=== PATIENT | male | born 1945 | race Caucasian/White ===

== ENCOUNTER 2017-03-21 12:51 | Inpatient (IN) | payer OTHER, MEDICARE ==
[~2017-03-21] VITALS: Ht 177.8 cm; Wt 96.5 kg
[~2017-03-21 12:51] MED LIST: CELE40TA PO; CLON.5 PO; FLUD.1 PO; ZYPR10TA PO
[2017-03-21 12:53] VITALS: BP 130/77; PULSE 76; RESP 18; TEMP 98.9; O2SAT 97
[2017-03-21] MEDS ORDERED: CITA10SO5 PO (14:16)
[2017-03-21] MEDS ORDERED: PILO5TAB3 PO (14:16)
[2017-03-21] MEDS ORDERED: NAPR500 PO (14:16)
[2017-03-21] MEDS ORDERED: CLON0.5T PO (14:16)
[2017-03-21] MEDS ORDERED: SIMV80TA PO (14:16)
[2017-03-21] MEDS ORDERED: ANTI2CAP PO (14:16)
[2017-03-21] MEDS ORDERED: PHEN-537 PO (14:16)
--- NOTE | 2017-03-21 14:36 | RADRPT ---
EXAM DATE/TIME: 03/21/2017 14:15 [place] COMPARISON: CT BRAIN W/O CONTRAST, August 26, 2009, 11:18. CT BRAIN W/O CONTRAST, September 22, 2009, 18:37. INDICATIONS : Altered mental status RADIATION DOSE: 33.08 CTDIvol (mGy) MEDICAL HISTORY : None SURGICAL HISTORY : None. ENCOUNTER: Initial ACUITY: 1 day PAIN SCALE: 0/10 LOCATION: cranial TECHNIQUE: Multiple contiguous axial images were obtained of the head. Using automated exposure control and adj ustment of the mA and/or kV according to patient size, radiation dose was kept as low as reasonably a chievable to obtain optimal diagnostic quality images. DICOM format image data is available electro nically for review and comparison. FINDINGS: CEREBRUM: There is mild generalized atrophy. Ventricles are normal. 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 No midline shift, mass lesion, hemorrhage or acute in farction. No extra-axial fluid collections are seen. POSTERIOR FOSSA: The cerebellum and brainstem demonstrate no acute finding. The 4th ventricle is midline. The cerebe llopontine angle is unremarkable. EXTRACRANIAL: Visualized sinuses are clear. SKULL: The calvaria is intact. No evidence of skull fracture. CONCLUSION: Stable noncontrast head CT. No acute finding is identified. 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 Gerald Younger MD on March 21, 2017 at 14:25 Board Certified Radiologist. This report was verified electronically.
--- NOTE | 2017-03-21 15:01 | PD ---
HPI Chief Complaint: Medical Clearance Time Seen by Provider: 13:32 Travel History International Travel<30 days: No Contact w/Intl Traveler<30days: No Traveled to known affect area: No History of Present Illness HPI 71-year-old male presents to emergency department, accompanied by 2 friends, with complaint of confusion for the past few months with recent worsening. Denies injury or fall. He lives with his at home. Patient is alert and oriented to self, place, Pres. Not oriented to time. Denies headache, eye headedness, dizziness. Denies disorientation, change in mentation, slurred speech, focal deficits or weakness. Denies chest pain, shortness of breath, abdominal pain, dysuria, change in stool. Denies recent illness. Denies fever , vomiting. I significant past medical history. Denies allergies. Primary care provider is Dr. Clement. Says he has a history of bipolar disorder and has not taken his medications in an unknown amount of time. He does not know what medication he takes. He has no other medical complaints. No known allergies. No other modifying factors or associated signs and symptoms. PFSH Past Medical History Bipolar Disorder: Yes Depression: Yes Diminished Hearing: No Psychiatric: Yes Tetanus Vaccination: Unknown Past Surgical History Other Surgery: Yes ("I had a circumcision years ago") Social History Alcohol Use: No Tobacco Use: No Substance Use: No Allergies-Medications (Allergen,Severity, Reaction): Coded Allergies: No Known Allergies (Verified Adverse Reaction, Unknown, 03/21/17) Reported Meds & Prescriptions Reported Meds & Active Scripts Active Zyprexa (Olanzapine) 10 Mg Tab 10 Mg PO HS Florinef (Fludrocortisone Acetate) 0.1 Mg Tab 0.1 Mg PO DAILY Klonopin (Clonazepam) 0.5 Mg Tab 0.5 Mg PO BID 60 Days Celexa (Citalopram Hydrobromide) 40 Mg Tab 40 Mg PO DAILY Reported Simvastatin 80 Mg Tab 80 Mg PO DAILY Clonazepam 0.5 Mg Tab 0.5 Mg PO HS Anti-Diarrheal (Loperamide HCl) 2 Mg Cap 2 Mg PO DIRECTED One capsule after each loose stool. Not to exceed 8 capsules per day. Pilocarpine 5 Mg Tab 5 Mg PO Q12HR PRN Citalopram HBr (Citalopram Hydrobromide) 20 Mg/10 Ml Solution 20 Mg PO DAILY Phenazopyridine (Phenazopyridine HCl) 200 Mg Tab 200 Mg PO Q8H PRN Naprosyn (Naproxen) 500 Mg Tab 500 Mg PO BID Review of Systems Except as stated in HPI: all other systems reviewed are Neg Physical Exam Narrative GENERAL: Well-nourished, well-developed elderly, male patient, in no acute distress SKIN: Warm and dry. HEAD: Atraumatic. Normocephalic. No facial droop noted. Tongue midline. EYES: Pupils equal and round at 3 mm with brisk reaction. No scleral icterus. No injection or drainage. PERRLA. EOMI. ENT: Mucosa pink and moist. Airway patent. NECK: Trachea midline. No lymphadenopathy. CARDIOVASCULAR: Regular rate and rhythm. No murmur appreciated. RESPIRATORY: No accessory muscle use. Clear to auscultation. Breath sounds equal bilaterally. GASTROINTESTINAL: Abdomen soft, non-tender, nondistended. Hepatic and splenic margins not palpable. Bowel sounds are active 4 quadrants. MUSCULOSKELETAL: No obvious deformities. No clubbing. No cyanosis. No edema. NEUROLOGICAL: Awake and alert. Oriented 3. No obvious cranial nerve deficits. Motor grossly within normal limits. Normal speech. No ataxia. No mid -line drift. Moves all extremities. 5/5 strength to all extremities. PSYCHIATRIC: Appropriate mood and affect; insight and judgment normal. Data Data Last Documented VS Vital Signs Date Time Temp Pulse Resp B/P (MAP) Pulse Ox O2 Delivery O2 Flow Rate FiO2 03/21/17 17:31 84 20 116/65 (82) 98 03/21/17 12:53 98.9 Orders Orders Basic Metabolic Panel (Bmp) (03/21/17 13:53) Complete Blood Count With Diff (03/21/17 13:53) Urinalysis - C+S If Indicated (03/21/17 13:53) Ct Brain W/O Iv Contrast(Rout) (03/21/17 ) Ed Discharge Order (03/21/17 16:49) Labs Laboratory Tests Test 03/21/17 14:30 03/21/17 15:40 White Blood Count 7.2 TH/MM3 Red Blood Count 4.31 MIL/MM3 Hemoglobin 13.3 GM/DL Hematocrit 40.2 % Mean Corpuscular Volume 93.2 FL Mean Corpuscular Hemoglobin 30.7 PG Mean Corpuscular Hemoglobin Concent 33.0 % Red Cell Distribution Width 13.0 % Platelet Count 213 TH/MM3 Mean Platelet Volume 7.8 FL Neutrophils (%) (Auto) 59.6 % Lymphocytes (%) (Auto) 29.0 % Monocytes (%) (Auto) 8.3 % Eosinophils (%) (Auto) 2.3 % Basophils (%) (Auto) 0.8 % Neutrophils # (Auto) 4.3 TH/MM3 Lymphocytes # (Auto) 2.1 TH/MM3 Monocytes # (Auto) 0.6 TH/MM3 Eosinophils # (Auto) 0.2 TH/MM3 Basophils # (Auto) 0.1 TH/MM3 CBC Comment DIFF FINAL Differential Comment Blood Urea Nitrogen 18 MG/DL Creatinine 0.95 MG/DL Random Glucose 90 MG/DL Calcium Level 8.4 MG/DL Sodium Level 141 MEQ/L Potassium Level 3.9 MEQ/L Chloride Level 108 MEQ/L Carbon Dioxide Level 27.5 MEQ/L Anion Gap 6 MEQ/L Estimat Glomerular Filtration Rate 78 ML/MIN Urine Color YELLOW Urine Turbidity CLEAR Urine pH 5.5 Urine Specific [place] 1.026 Urine Protein NEG mg/dL Urine Glucose (UA) NEG mg/dL Urine Ketones NEG mg/dL Urine Occult Blood NEG Urine Nitrite NEG Urine Bilirubin NEG Urine Urobilinogen LESS THAN 2.0 MG/DL Urine Leukocyte Esterase NEG Urine RBC LESS THAN 1 /hpf Urine WBC 2 /hpf Urine Squamous Epithelial Cells <1 /hpf Urine Mucus FEW /lpf Microscopic Urinalysis Comment CATH-CULT NOT IND MDM Medical Decision Making Medical Screen Exam Complete: Yes Emergency Medical Condition: Yes Medical Record Reviewed: Yes Differential Diagnosis Altered mental status, dementia, Alzheimer disease, confusion, UTI, brain mass Narrative Course 71-year-old male with effusion for the past few months with recent worsening. Neuro exam is unremarkable. CBC, BMP, CT head, urinalysis ordered. 1520: CT head concludes: Head CT 03/21/17 0000 Signed Impressions: Service Date/Time: Tuesday, March 21, 2017 14:15 - CONCLUSION: Stable noncontrast head CT. No acute finding is identified. 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 Gerald Younger MD CBC unremarkable. BMP unremarkable. 1640: Urinalysis without signs of infection. Dr Roberson evaluated the patient and agrees with discharge. He lives at home with his . Discussed home health care and other options. Instructed patient to follow up with primary care provider. Patient verbalizes understanding and agreement with treatment plan. Patient is medically cleared and stable for discharge. Discussed reasons to return to the emergency department. Patient agrees with treatment plan. The patients vital signs are stable and the patient is stable for outpatient follow-up and treatment. Patient discharged home, stable and in no acute distress. Diagnosis Primary Impression: Confusion Referrals: Primary Care Physician Patient Instructions: Dementia (ED), General Instructions Additional Instructions: Seek Home Health for assistance Follow-up with primary care provider Return to the emergency department immediately if worsening of symptoms Med/Other Pt SpecificInfo: No Change to Meds, No Meds Exist/No RX given Disposition: 01 DISCHARGE HOME Condition: Stable Susie Hudson Mar 21, 2017 15:00
[2017-03-21 15:04] LABS: AUTOMATED NEUTROPHIL # 4.3 TH/MM3 (1.8-7.7); BASOPHIL # 0.1 TH/MM3 (0-0.2); BASOPHIL % 0.8 % (0.0-2.0); EOSINOPHIL # 0.2 TH/MM3 (0-0.4); EOSINOPHIL % 2.3 % (0.0-4.0); HEMATOCRIT 40.2 % (39.0-51.0); HEMO FLAGS DIFF FINAL; LYMPHOCYTE # 2.1 TH/MM3 (1.0-4.8); MEAN CELL VOLUME 93.2 FL (80.0-100.0); MEAN CORPUSCULAR HEMOGLOBIN 30.7 PG (27.0-34.0); MONO % 8.3 % (0.0-8.0); NEUT % 59.6 % (16.0-70.0); PLATELET COUNT 213 TH/MM3 (150-450); RED BLOOD COUNT 4.31 MIL/MM3 (4.50-5.90); WHITE BLOOD COUNT 7.2 TH/MM3 (4.0-11.0)
[2017-03-21 15:30] LABS: BICARBONATE 27.5 MEQ/L (21.0-32.0); POTASSIUM 3.9 MEQ/L (3.5-5.1)
[2017-03-21 16:24] LABS: BLOOD, URINE NEG (NEG); GLUCOSE,URINE NEG (NEG); KETONE, URINE NEG (NEG); MUCUS URINE FEW /lpf (OCC); NITRITE,URINE NEG (NEG); PH, URINE 5.5 (5.0-8.5); SQUAMOUS EPITHELIAL CELL URINE <1 /hpf (0-5); URINE COLOR YELLOW (YELLW/STRAW)
[2017-03-21 16:25] LABS: COMMENT (UR) CATH-CULT NOT IND; CULTURE IF INDICATED CATH CULTURE NOT IND
[2017-03-21 17:31] VITALS: BP 116/65; PULSE 84; RESP 20; O2SAT 98
--- NOTE | 2017-03-21 19:50 | PD ---
Physical Exam Time Seen by Provider: 19:40 Data Data Last Documented VS Vital Signs Date Time Temp Pulse Resp B/P (MAP) Pulse Ox O2 Delivery O2 Flow Rate FiO2 03/21/17 23:09 98.1 69 16 107/62 (77) 94 Orders Orders Basic Metabolic Panel (Bmp) (03/21/17 13:53) Complete Blood Count With Diff (03/21/17 13:53) Urinalysis - C+S If Indicated (03/21/17 13:53) Ct Brain W/O Iv Contrast(Rout) (03/21/17 ) Psych Screen (03/21/17 19:41) Admit Order (Ed Use Only) (03/22/17 ) Labs Laboratory Tests Test 03/21/17 14:30 03/21/17 15:40 White Blood Count 7.2 TH/MM3 Red Blood Count 4.31 MIL/MM3 Hemoglobin 13.3 GM/DL Hematocrit 40.2 % Mean Corpuscular Volume 93.2 FL Mean Corpuscular Hemoglobin 30.7 PG Mean Corpuscular Hemoglobin Concent 33.0 % Red Cell Distribution Width 13.0 % Platelet Count 213 TH/MM3 Mean Platelet Volume 7.8 FL Neutrophils (%) (Auto) 59.6 % Lymphocytes (%) (Auto) 29.0 % Monocytes (%) (Auto) 8.3 % Eosinophils (%) (Auto) 2.3 % Basophils (%) (Auto) 0.8 % Neutrophils # (Auto) 4.3 TH/MM3 Lymphocytes # (Auto) 2.1 TH/MM3 Monocytes # (Auto) 0.6 TH/MM3 Eosinophils # (Auto) 0.2 TH/MM3 Basophils # (Auto) 0.1 TH/MM3 CBC Comment DIFF FINAL Differential Comment Blood Urea Nitrogen 18 MG/DL Creatinine 0.95 MG/DL Random Glucose 90 MG/DL Calcium Level 8.4 MG/DL Sodium Level 141 MEQ/L Potassium Level 3.9 MEQ/L Chloride Level 108 MEQ/L Carbon Dioxide Level 27.5 MEQ/L Anion Gap 6 MEQ/L Estimat Glomerular Filtration Rate 78 ML/MIN Urine Color YELLOW Urine Turbidity CLEAR Urine pH 5.5 Urine Specific [place] 1.026 Urine Protein NEG mg/dL Urine Glucose (UA) NEG mg/dL Urine Ketones NEG mg/dL Urine Occult Blood NEG Urine Nitrite NEG Urine Bilirubin NEG Urine Urobilinogen LESS THAN 2.0 MG/DL Urine Leukocyte Esterase NEG Urine RBC LESS THAN 1 /hpf Urine WBC 2 /hpf Urine Squamous Epithelial Cells <1 /hpf Urine Mucus FEW /lpf Microscopic Urinalysis Comment CATH-CULT NOT IND MDM Medical Record Reviewed: Yes Supervised Visit with ARIANA: No Narrative Course Please see previous providers notes. Briefly this is a patient was initially brought in by friends for evaluation of increasing confusion for several months. He was initially seen by the previous provider and cleared for discharge. The patient's friends were ministers have now arrived to his room. I was told by the nurse that the patient says that he is going to kill himself if he He goes home. Apparently he has a history of bipolar disorder and he has been off of his medications for several months but he does not remember what medications they were. The friends are concerned about his erratic behavior and unpredictability and therefore the patient remain here for psychiatric screening. 0100: I have been asked to place the patient under [place] act by psychiatrist Dr. Cotton because of his unpredictability. Diagnosis Primary Impression: Confusion Referrals: Primary Care Physician Patient Instructions: General Instructions, Dementia (ED) Departure Forms: Tests/Procedures Additional Instruction: Seek Home Health for assistance Follow-up with primary care provider Return to the emergency department immediately if worsening of symptoms Disposition: 01 DISCHARGE HOME Condition: Stable Denny Garcia Mar 21, 2017 19:50
[2017-03-21 23:09] VITALS: BP 107/62; PULSE 69; RESP 16; TEMP 98.1; O2SAT 94
[2017-03-22] MEDS ORDERED: ACETAMINOPHEN 325 MG TAB PO PRN (01:15)
[2017-03-22] MEDS ORDERED: PILOCARPINE HCL 5 MG TAB PO PRN (01:15)
[2017-03-22] MEDS ORDERED: MAGNESIUM HYDROXIDE SUSP 30 ML CUP PO PRN (01:15)
[2017-03-22] MEDS ORDERED: LOPERAMIDE HCL 2 MG CAP PO PRN (01:15)
[2017-03-22] MEDS ORDERED: LORazepam 2 MG/ML VIAL IM PRN (01:15)
[2017-03-22] MEDS ORDERED: PHENAZOPYRIDINE HCL 200 MG TAB PO PRN (01:15)
[2017-03-22 02:20] VITALS: BP 131/67; PULSE 73; RESP 18; TEMP 98.3; O2SAT 18
[2017-03-22] MEDS: LORazepam 0.5 MG TAB PO PRN (03:04)
[2017-03-22 06:29] VITALS: BP 134/59; PULSE 70; RESP 18; TEMP 97.7; O2SAT 96
[2017-03-22] MEDS: REMOVE OLD PATCH T-DERMAL SCH (09:00)
[2017-03-22] MEDS: NICOTINE 21 MG/24 HR PATCH T-DERMAL SCH (09:00)
[2017-03-22] MEDS: FLUDROCORTISONE ACETATE 0.1 MG TAB PO SCH (09:04)
[2017-03-22] MEDS: ATORVASTATIN 40 MG TAB PO SCH (09:05)
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
--- NOTE | 2017-03-22 12:44 | MB ---
cc: CIRO HAMILTON M.D. DATE OF CONSULTATION 03/22/2017 REASON FOR CONSULTATION He is 71 years old, seen in neurological consultation in regards to confusional state. HISTORY OF PRESENT ILLNESS He is in the psychiatric unit for depression. Apparently he has not been taking his medications for depression lately. He comes in under a [place] Act and the patient is unable to provide more detailed information. He was living with his in [place] and he has a prior history of psychiatric hospitalization. The patient denies history of stroke or seizures. SOCIAL HISTORY Apparently does not drink alcohol. LIST OF MEDICATIONS 1. Simvastatin. 2. Clonazepam. 3. Citalopram. 4. Naprosyn. 5. Pyridium. In the past he had been taken Zyprexa but apparently is no longer on this medication. PHYSICAL EXAMINATION Exam showed the patient to be awake, somewhat flat affect, mild bradykinesia, somewhat irritable, asking when he is going to be released and he feels he is ready to go back home with his , he is not quite so sure why he is here. Slowly he came up with the day of the week, the month and the year but he made some initial mistakes. Initially he started stating 51 instead of 71 for age but he self-corrected. He knows where he is right now. He ambulates slowly but without assistive device. Reflexes were 2+ throughout including the ankles and plantar responses equivocal. Ocular movements and visual [place] full. ASSESSMENT Chronic encephalopathy. There is probable associated dementia to the underlying psychiatric/depressive illness. CT brain was unremarkable but for completeness I will request an MRI brain and EEG. CBC and basic chemistries essentially unremarkable. PLAN I will check a B12, thyroid and RPR as well. Continue the psychiatric and supportive medical care. Thank you for asking us to assist in his care. MD ALLYSON Milian/PRAVEEN /11:58 AM /12:24 PM
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
--- NOTE | 2017-03-22 14:31 | EKG ---
Date Performed: 03/22/2017 Time Performed: 01:48:40 PTAGE: 71 years EKG: Sinus rhythm WITH MARKED SINUS ARRHYTHMIA BORDERLINE ECG Compared to prior tracing no significant change PREVIOUS TRACING : 09/22/09 DOCTOR: Marcie Garces Interpretating Date/Time 03/22/2017 14:26:24
--- NOTE | 2017-03-22 15:56 | PD.CONS ---
[facility] By [facility] Cotton Reason for Consult Medical management Primary Care Physician No Primary Care Physician Diagnoses: History of Present Illness The patient is a 71-year-old male who is presenting to the hospital with worsening confusion. In the emergency department he made a statement saying that if he went home he would kill himself so he was [place] acted and is currently in a psychiatric unit. He asks about when he can go home. He says that he had a fall a few months ago and developed pain in his right leg. He wants to know if he could take any pain medications for that. He says the pain is constant in nature. Otherwise he denies any acute complaint. He says he is breathing well. He currently lives with his and would like to go back soon. He does endorse hearing voices but is unable to elaborate on what the voices say. Discussed with nursing. Review of Systems Except as stated in HPI: all other systems reviewed are Neg Past Family Social History Allergies: Coded Allergies: No Known Allergies (Verified Allergy, Unknown, 03/22/17) Past Medical History Traumatic brain injury Dementia Left leg surgery Circumcision Active Ordered Medications Current Medications Medications (Trade) Dose Ordered Sig/Lalo Route Start Time Stop Time Status Last Admin (Florinef) 0.1 mg DAILY PO 03/22/17 09:00 03/22/17 09:04 (Imodium) 2 mg Q6H PRN PO 03/22/17 01:15 (Naprosyn) 500 mg BID PO 03/22/17 09:00 (Pyridium) 200 mg Q8H PRN PO 03/22/17 01:15 (Salagen) 5 mg Q12HR PRN PO 03/22/17 01:15 (Lipitor) 40 mg DAILY PO 03/22/17 09:00 03/22/17 09:05 (Ativan) 0.5 mg Q12H PRN PO 03/22/17 01:15 03/22/17 03:04 (Ativan Inj) 0.5 mg Q12H PRN IM 03/22/17 01:15 (Tylenol) 650 mg Q4H PRN PO 03/22/17 01:15 (Milk Of Magnesia Liq) 30 ml DAILY PRN PO 03/22/17 01:15 (Mag-Al Plus Susp Liq) 30 ml Q6H PRN PO 03/22/17 01:15 (Habitrol 21 Mg Patch.24 Hr) 1 patch DAILY T-DERMAL 03/22/17 09:00 Miscellaneous Information 1 DAILY T-DERMAL 03/22/17 09:00 (ZyPREXA) 10 mg HS PO 03/22/17 21:00 Future Hold Family History The patient denies pertinent family history Social History The patient does not smoke or drink Physical Exam Vital Signs Vital Signs Date Time Temp Pulse Resp B/P (MAP) Pulse Ox O2 Delivery O2 Flow Rate FiO2 03/22/17 06:29 97.7 70 18 134/59 (84) 96 03/22/17 02:20 98.3 73 18 131/67 (88) 18 03/21/17 23:09 98.1 69 16 107/62 (77) 94 03/21/17 17:31 84 20 116/65 (82) 98 Physical Exam GENERAL: This is a well-nourished, well-developed patient, in no apparent distress. SKIN: No rashes, ecchymoses or lesions. Cool and dry. HEAD: Atraumatic. Normocephalic. No temporal or scalp tenderness. EYES: Pupils equal round and reactive. Extraocular motions intact. No scleral icterus. No injection or drainage. ENT: Nose without bleeding, purulent drainage or septal hematoma. Throat without erythema, tonsillar hypertrophy or exudate. Uvula midline. Airway patent. NECK: Trachea midline. No JVD or lymphadenopathy. Supple, nontender, no meningeal signs. CARDIOVASCULAR: Regular rate and rhythm without murmurs, gallops, or rubs. RESPIRATORY: Clear to auscultation. Breath sounds equal bilaterally. No wheezes , rales, or rhonchi. GASTROINTESTINAL: Abdomen soft, non-tender, nondistended. No hepato-splenomegaly , or palpable masses. No guarding. MUSCULOSKELETAL: Extremities without clubbing, cyanosis, or edema. Tenderness to palpation of right knee. NEUROLOGICAL: Awake and alert. Cranial nerves II through XII intact. Motor and sensory grossly within normal limits. Five out of 5 muscle strength in all muscle groups. Normal speech. Laboratory Laboratory Tests Test 03/22/17 15:02 Result Diagram: 03/21/17 1430 03/21/17 1430 Imaging Last Impressions Head CT 03/21/17 0000 Signed Impressions: Service Date/Time: Tuesday, March 21, 2017 14:15 - CONCLUSION: Stable noncontrast head CT. No acute finding is identified. 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 Gerald Younger MD Assessment and Plan Assessment and Plan Dementia Neurology consult appreciated. - MRI, EEG and labs per neurology pending. - further management per psychiatry. Right knee pain The pt had a fall about 2-3 months ago and exam is positive for right knee cap pain. - ibuprofen for knee pain. - PT. PPx: Ambulation Discussed Condition With Pt, nurse Medicine will sign off on this stable pt. Please reconsult as needed. Dante Khan DO Mar 22, 2017 15:56
[2017-03-22] MEDS ORDERED: IBUPROFEN 600 MG TAB PO ONE (16:30)
[2017-03-22 18:26] VITALS: BP 99/56; PULSE 91; RESP 18; TEMP 98.9; O2SAT 96
[2017-03-22] MEDS: NAPROXEN 500 MG TAB PO SCH (20:56)
[2017-03-22] MEDS ORDERED: OLANZapine 10 MG TAB PO SCH (21:00)
[2017-03-22] MEDS: OLANZapine 10 MG TAB PO SCH (22:03)
[2017-03-23] MEDS ORDERED: IBUPROFEN 600 MG TAB PO PRN
[2017-03-23 05:46] VITALS: BP 114/56; PULSE 54; RESP 17; TEMP 97; O2SAT 98
[2017-03-23 08:39] LABS: ANION GAP 8 MEQ/L (5-15); AST (GOT) 14 U/L (15-37); BICARBONATE 26.1 MEQ/L (21.0-32.0); BLOOD UREA NITROGEN 16 MG/DL (7-18); CHLORIDE 104 MEQ/L (98-107); GLOMERULAR FILTRATION RATE 67 ML/MIN (>89); POTASSIUM 3.6 MEQ/L (3.5-5.1); SODIUM (NA) 138 MEQ/L (136-145)
[2017-03-23 08:40] LABS: ALT (GPT) 20 U/L (12-78)
[2017-03-23 08:49] LABS: ALKALINE PHOSPHATASE 68 U/L (45-117); HDL CHOLESTEROL 41.5 MG/DL (40.0-60.0); LDL CHOLESTEROL 78 MG/DL (0-99); TOTAL BILIRUBIN ADULT 0.6 MG/DL (0.2-1.0)
[2017-03-23] MEDS: NICOTINE 21 MG/24 HR PATCH T-DERMAL SCH (09:00)
[2017-03-23] MEDS: REMOVE OLD PATCH T-DERMAL SCH (09:00)
[2017-03-23] MEDS: FLUDROCORTISONE ACETATE 0.1 MG TAB PO SCH (09:36)
[2017-03-23] MEDS: ATORVASTATIN 40 MG TAB PO SCH (09:37)
[2017-03-23] MEDS: NAPROXEN 500 MG TAB PO SCH ×2 (09:38→21:19)
[2017-03-23] MEDS: LORazepam 0.5 MG TAB PO PRN (11:41)
--- NOTE | 2017-03-23 13:19 | HHI.PYPN ---
Subjective Chief Complaint: confusion with suicidal ideation noncompliance medication Remarks Patient seen in his room with nurse Coral, patient calm continues to focus on discharge. I discussed with him his 's concern about his compliance with medication at home and Na noncompliance leads to more irritability in his behavior. Patient compliant medication so far. We will ask counselor to attempt to meet with patient's tomorrow to discuss further care. Patient also is willing to do this Review of Systems Except as stated in HPI: all other systems reviewed are Neg Mental Status Examination Appearance: Appropriate Consciousness: Alert Orientation: Person, Place (vaguely knows that is [facility] does not know location or state) Motor Activity: Normal gait Speech: Pressured (mildly) Language: Adequate Fund of Knowledge: Adequate Attention and Concentration: Other (poor to fair) Memory: Impaired, Remote (intact) Mood: Irritable (wanting to go home "now"), Other (euthymic to dysphoric) Affect: Other (slight increase range and intensity) Thought Process & Associations: Loose associations Thought Content: Other (disorganized) Hallucination Type: None (denies) Delusion Type: None (denies) Suicidal Ideation: No (denies at this time) Suicidal Plan: No (denies at this time) Suicidal Intention: No (denies at this time) Homicidal Ideation: No Homicidal Plan: No Homicidal Intention: No Insight: Poor Judgment: Poor Results Labs Test 03/22/17 15:02 03/23/17 07:55 Vitamin B12 Level 374 PG/ML Rapid Plasma Reagin NON-REACTIVE Blood Urea Nitrogen 16 MG/DL Creatinine 1.08 MG/DL Random Glucose 116 MG/DL Total Protein 7.1 GM/DL Albumin 3.9 GM/DL Calcium Level 8.4 MG/DL Alkaline Phosphatase 68 U/L Aspartate Amino Transf (AST/SGOT) 14 U/L Alanine Aminotransferase (ALT/SGPT) 20 U/L Total Bilirubin 0.6 MG/DL Sodium Level 138 MEQ/L Potassium Level 3.6 MEQ/L Chloride Level 104 MEQ/L Carbon Dioxide Level 26.1 MEQ/L Anion Gap 8 MEQ/L Estimat Glomerular Filtration Rate 67 ML/MIN Triglycerides Level 93 MG/DL Cholesterol Level 138 MG/DL LDL Cholesterol 78 MG/DL HDL Cholesterol 41.5 MG/DL Cholesterol/HDL Ratio 3.32 RATIO Thyroid Stimulating Hormone 3rd Gen 0.505 uIU/ML Vitals/IOs Vital Signs Date Time Temp Pulse Resp B/P (MAP) Pulse Ox O2 Delivery O2 Flow Rate FiO2 03/23/17 05:46 97.0 54 17 114/56 (75) 98 Assessment & Plan Problem List: (1) Traumatic brain injury ICD Codes: S06.9X9A - Unspecified intracranial injury with loss of consciousness of unspecified duration, initial encounter (2) DEMENTIA IN OTH DISEASES CLASSD ELSWHR W BEHAVIORAL DISTURB ICD Codes: F02.81 - DEMENTIA IN OTH DISEASES CLASSD ELSWHR W BEHAVIORAL DISTURB Assessment & Plan Estimated LOS: days patient continue somewhat confused disoriented though compliant medications. Still focusing on discharge. We'll attempt to meet with patient's tomorrow Justification for Cont. Inpt. This time patient will decompensate placed in a lower level of care Discharge Planning Hopefully patient to return home with family Request HC Surrog/Guard Advoc?: Yes Gerald Ward MD Mar 23, 2017 13:19
[2017-03-23 16:45] LABS: HEMOGLOBIN A1a 0.7 %; HEMOGLOBIN A1b 0.8 %; HEMOGLOBIN F 0.9 %; HEMOGLOBIN LA1C 2.1 %; HEMOGLOBIN P3 3.6 %
[2017-03-23 18:00] VITALS: BP 101/55; PULSE 65; RESP 16; TEMP 97.4; O2SAT 98
[2017-03-23] MEDS: OLANZapine 10 MG TAB PO SCH (21:19)
[2017-03-24 06:14] VITALS: BP 122/61; PULSE 60; RESP 17; TEMP 98; O2SAT 95
[2017-03-24] MEDS: FLUDROCORTISONE ACETATE 0.1 MG TAB PO SCH (08:42)
[2017-03-24] MEDS: NAPROXEN 500 MG TAB PO SCH ×2 (08:43→20:16)
[2017-03-24] MEDS: REMOVE OLD PATCH T-DERMAL SCH (08:43)
[2017-03-24] MEDS: NICOTINE 21 MG/24 HR PATCH T-DERMAL SCH (08:43)
[2017-03-24] MEDS: ATORVASTATIN 40 MG TAB PO SCH (08:43)
--- NOTE | 2017-03-24 14:05 | HHI.PYPN ---
Subjective Chief Complaint: confusion with suicidal ideation noncompliance medication Remarks Met with patient's and 's girlfriend and nurse Coral and counselor Teresita. Review patient's behaviors noncompliance medication, past mental health history. His behavior changes with the paranoia and psychotic features they've recurred with his noncompliance medication. Through all this states she still willing to care for this patient but she wishes to have some degree of certainty that his behavior compliance with medication will persist when he returns home. Patient seen in the day room after visit with family. Patient focuses on discharge. I discussed with him the topics discussed with a meeting with the family. Processing his need for compliance with medication. Cooperation with his with living in the same home as she. That we need further time to adjust his medication and to observe consistency in his behavior. Him somewhat irritated and angry though he tolerated it and is willing to except the fact. Today I will increase his Zyprexa to 15 mg at at bedtime though further observe from. Hopefully he will remain consistent to the weekend to consider discharge home first part next week Review of Systems Except as stated in HPI: all other systems reviewed are Neg Mental Status Examination Appearance: Appropriate Consciousness: Alert Orientation: Person, Place (vaguely knows that is [facility] does not know location or state) Motor Activity: Normal gait Speech: Pressured (mildly) Language: Adequate Fund of Knowledge: Adequate Attention and Concentration: Other (poor to fair) Memory: Impaired, Remote (intact) Mood: Irritable (wanting to go home "now"), Other (euthymic to dysphoric) Affect: Other (slight increase range and intensity) Thought Process & Associations: Loose associations Thought Content: Other (disorganized) Hallucination Type: None (denies) Delusion Type: None (denies) Suicidal Ideation: No (denies at this time) Suicidal Plan: No (denies at this time) Suicidal Intention: No (denies at this time) Homicidal Ideation: No Homicidal Plan: No Homicidal Intention: No Insight: Poor Judgment: Poor Results Vitals/IOs Vital Signs Date Time Temp Pulse Resp B/P (MAP) Pulse Ox O2 Delivery O2 Flow Rate FiO2 03/24/17 06:14 98.0 60 17 122/61 (81) 95 Intake and Output 03/24/17 03/24/17 03/25/17 08:00 16:00 00:00 Intake Total 100 ml Balance 100 ml Assessment & Plan Problem List: (1) Traumatic brain injury ICD Codes: S06.9X9A - Unspecified intracranial injury with loss of consciousness of unspecified duration, initial encounter (2) DEMENTIA IN OTH DISEASES CLASSD ELSWHR W BEHAVIORAL DISTURB ICD Codes: F02.81 - DEMENTIA IN OTH DISEASES CLASSD ELSWHR W BEHAVIORAL DISTURB Assessment & Plan Estimated LOS: days patient somewhat confused and paranoid and vigilant, but cooperative with me. He did discuss the meeting and with his and counselors. See medication adjustment above Justification for Cont. Inpt. At this time patient would decompensate placed on lower level of care Discharge Planning Probable discharge home once patient stabilizes Request HC Surrog/Guard Advoc?: Yes Gerald Ward MD Mar 24, 2017 14:05
[2017-03-24] MEDS: OLANZapine 5 MG TAB PO SCH (20:16)
[2017-03-24 20:30] VITALS: BP 156/65; PULSE 72; RESP 17; TEMP 97.7; O2SAT 99
[2017-03-24] MEDS: ALUMINUM/MAGNESIUM/SIMETH 30 ML CUP PO PRN (22:28)
[2017-03-25 06:26] VITALS: BP 121/66; PULSE 65; RESP 16; TEMP 95.8; O2SAT 95
[2017-03-25] MEDS: ATORVASTATIN 40 MG TAB PO SCH (08:39)
[2017-03-25] MEDS: NICOTINE 21 MG/24 HR PATCH T-DERMAL SCH (09:00)
[2017-03-25] MEDS: REMOVE OLD PATCH T-DERMAL SCH (09:00)
[2017-03-25] MEDS ORDERED: GADODIAMIDE PF 287 MG/ML 20 ML VIAL (for RAD MRI) IV PUSH ONE (09:45)
--- NOTE | 2017-03-25 10:14 | HHI.PYPN ---
Subjective Chief Complaint: confusion with suicidal ideation noncompliance medication Remarks Patient seen in dayroom with floor staff, chart reviewed, patient compliant medications. Patient still showing some mild confusion. Though he is aware of our plan for continuing monitoring through the weekend to observe for consistency in his behaviors. He did show some mild irritability developing discharged today but he process that fairly well. For now continue treatment no change Review of Systems Except as stated in HPI: all other systems reviewed are Neg Mental Status Examination Appearance: Appropriate Consciousness: Alert Orientation: Person, Place (vaguely knows that [facility] does not know location or state) Motor Activity: Normal gait Speech: Pressured (mildly) Language: Adequate Fund of Knowledge: Adequate Attention and Concentration: Other (poor to fair) Memory: Impaired, Remote (intact) Mood: Irritable (wanting to go home "now"), Other (euthymic to dysphoric) Affect: Other (slight increase range and intensity) Thought Process & Associations: Loose associations Thought Content: Other (disorganized) Hallucination Type: None (denies) Delusion Type: None (denies) Suicidal Ideation: No (denies at this time) Suicidal Plan: No (denies at this time) Suicidal Intention: No (denies at this time) Homicidal Ideation: No Homicidal Plan: No Homicidal Intention: No Insight: Poor Judgment: Poor Results Vitals/IOs Vital Signs Date Time Temp Pulse Resp B/P (MAP) Pulse Ox O2 Delivery O2 Flow Rate FiO2 03/25/17 06:26 95.8 65 16 121/66 (84) 95 Intake and Output 03/25/17 03/25/17 03/26/17 08:00 16:00 00:00 Intake Total 240 ml Balance 240 ml Assessment & Plan Problem List: (1) Traumatic brain injury ICD Codes: S06.9X9A - Unspecified intracranial injury with loss of consciousness of unspecified duration, initial encounter (2) DEMENTIA IN OTH DISEASES CLASSD ELSWHR W BEHAVIORAL DISTURB ICD Codes: F02.81 - DEMENTIA IN OTH DISEASES CLASSD ELSWHR W BEHAVIORAL DISTURB Assessment & Plan Estimated LOS: days patient to somewhat confused disoriented though behaviors have calm somewhat. Is compliant with his medications. For now continue treatment consideration of discharge to his family first part of next week if his behaviors remain consistent through the weekend Justification for Cont. Inpt. At this time patient will decompensate placed in a lower level of care Discharge Planning Consider return to home first part next week of behaviors remain consistent Request HC Surrog/Guard Advoc?: Yes Gerald Ward MD Mar 25, 2017 10:14
[2017-03-25] MEDS: NAPROXEN 500 MG TAB PO SCH ×2 (10:37→21:00)
[2017-03-25] MEDS: FLUDROCORTISONE ACETATE 0.1 MG TAB PO SCH (10:37)
--- NOTE | 2017-03-25 11:13 | RADRPT ---
EXAM DATE/TIME: 03/25/2017 09:49 [place] COMPARISON: No previous studies available for comparison. INDICATIONS : Altered mental status. CONTRAST: 19 cc Omniscan (gadodiamide) IV MEDICAL HISTORY : None. SURGICAL HISTORY : None. ENCOUNTER: Initial ACUITY: 4-6 days PAIN SCORE: 0/10 LOCATION: Head TECHNIQUE: Multiplanar, multisequence MRI of the brain was performed both prior to and following the administrat ion of paramagnetic contrast. FINDINGS: CEREBRUM: The ventricles are normal for age. No evidence of midline shift, mass lesion, hemorrhage or acute in farction. No extraaxial fluid collections are seen. The pituitary gland and suprasellar cistern are normal in configuration. WHITE MATTER: No significant signal abnormalities are seen in the white matter. POSTERIOR FOSSA: The cerebellum and brainstem are intact. The 4th ventricle is midline. The cerebellopontine angle is unremarkable. The cerebellar tonsils are normal in position. DIFFUSION IMAGING: No focal areas of restricted diffusion are seen. No evidence of acute infarction. EXTRACRANIAL: The visualized portions of the orbits and paranasal sinuses are unremarkable. POST-CONTRAST: No abnormal areas of parenchymal or dural enhancement. No evidence of blood-brain barrier breakdown. CONCLUSION: 1. No evidence of acute intracranial pathology. No masses are identified. Ernesto Thomason MD on March 25, 2017 at 11:08 Board Certified Radiologist. This report was verified electronically.
[2017-03-25 17:21] VITALS: BP 117/63; PULSE 72; RESP 16; TEMP 96.7; O2SAT 96
[2017-03-25] MEDS: OLANZapine 5 MG TAB PO SCH (21:00)
[2017-03-26 05:58] VITALS: BP 169/81; PULSE 69; RESP 18; TEMP 96.9; O2SAT 96
[2017-03-26] MEDS: ATORVASTATIN 40 MG TAB PO SCH (08:38)
[2017-03-26] MEDS: NAPROXEN 500 MG TAB PO SCH ×2 (08:38→21:39)
[2017-03-26] MEDS: FLUDROCORTISONE ACETATE 0.1 MG TAB PO SCH (08:38)
[2017-03-26] MEDS: REMOVE OLD PATCH T-DERMAL SCH (08:42)
[2017-03-26] MEDS: NICOTINE 21 MG/24 HR PATCH T-DERMAL SCH (08:43)
[2017-03-26 17:56] VITALS: BP 124/64; PULSE 72; RESP 17; TEMP 97.5; O2SAT 98
--- NOTE | 2017-03-26 18:14 | HHI.PYPN ---
Subjective Chief Complaint: confusion with suicidal ideation noncompliance medication Remarks Patient was seen and case discussed with nursing. Patient describes himself as "anxious." Affect is constricted. No outbursts in the unit. No irritability reported today. Tolerating his medications well Mental Status Examination Appearance: Appropriate Consciousness: Alert Orientation: Person, Place (vaguely knows that is [facility] does not know location or state) Motor Activity: Normal gait Speech: Pressured (mildly) Language: Adequate Fund of Knowledge: Adequate Attention and Concentration: Other (poor to fair) Memory: Impaired, Remote (intact) Mood: Anxious Thought Process & Associations: Loose associations Thought Content: Other (disorganized) Hallucination Type: None (denies) Delusion Type: None (denies) Suicidal Ideation: No (denies at this time) Suicidal Plan: No (denies at this time) Suicidal Intention: No (denies at this time) Homicidal Ideation: No Homicidal Plan: No Homicidal Intention: No Insight: Poor Judgment: Poor Results Vitals/IOs Vital Signs Date Time Temp Pulse Resp B/P (MAP) Pulse Ox O2 Delivery O2 Flow Rate FiO2 03/26/17 17:56 97.5 72 17 124/64 (84) 98 Intake and Output 03/26/17 03/26/17 03/27/17 08:00 16:00 00:00 Intake Total 720 ml 1440 ml Balance 720 ml 1440 ml Assessment & Plan Problem List: (1) Traumatic brain injury ICD Codes: S06.9X9A - Unspecified intracranial injury with loss of consciousness of unspecified duration, initial encounter (2) DEMENTIA IN OTH DISEASES CLASSD ELSWHR W BEHAVIORAL DISTURB ICD Codes: F02.81 - DEMENTIA IN OTH DISEASES CLASSD ELSWHR W BEHAVIORAL DISTURB Assessment & Plan Continue current treatment plan Justification for Cont. Inpt. Patient will decompensate in a less restrictive setting Request HC Surrog/Guard Advoc?: Yes Nahid Gupta DO Mar 26, 2017 18:14
[2017-03-26] MEDS: OLANZapine 5 MG TAB PO SCH (21:39)
[2017-03-27 05:35] VITALS: BP 110/58; PULSE 60; RESP 18; TEMP 98.1
[2017-03-27] MEDS: NAPROXEN 500 MG TAB PO SCH ×2 (08:52→21:07)
[2017-03-27] MEDS: FLUDROCORTISONE ACETATE 0.1 MG TAB PO SCH (08:52)
[2017-03-27] MEDS: ATORVASTATIN 40 MG TAB PO SCH (08:52)
[2017-03-27] MEDS: NICOTINE 21 MG/24 HR PATCH T-DERMAL SCH (08:53)
[2017-03-27] MEDS: REMOVE OLD PATCH T-DERMAL SCH (08:53)
[2017-03-27] MEDS: ALUMINUM/MAGNESIUM/SIMETH 30 ML CUP PO PRN (10:27)
--- NOTE | 2017-03-27 17:26 | HHI.PYPN ---
Subjective Chief Complaint: confusion with suicidal ideation noncompliance medication Remarks Patient was seen and case discussed with nursing. Patient remains on good behavior. He's had no agitation. Social with others. Compliant with his medications and tolerating it well. He is quite perseverative on discharge. Mental Status Examination Appearance: Appropriate Consciousness: Alert Orientation: Person, Place (vaguely knows that is [facility] does not know location or state) Motor Activity: Normal gait Speech: Pressured (mildly) Language: Adequate Fund of Knowledge: Adequate Attention and Concentration: Other (poor to fair) Memory: Impaired, Remote (intact) Mood: Anxious Thought Process & Associations: Disorganized Thought Content: Other (disorganized) Hallucination Type: None (denies) Delusion Type: None (denies) Suicidal Ideation: No (denies at this time) Suicidal Plan: No (denies at this time) Suicidal Intention: No (denies at this time) Homicidal Ideation: No Homicidal Plan: No Homicidal Intention: No Insight: Poor Judgment: Poor Results Vitals/IOs Vital Signs Date Time Temp Pulse Resp B/P (MAP) Pulse Ox O2 Delivery O2 Flow Rate FiO2 03/27/17 05:35 98.1 60 18 110/58 (75) 03/26/17 17:56 98 Intake and Output 03/27/17 03/27/17 03/28/17 08:00 16:00 00:00 Intake Total 480 ml Balance 480 ml Assessment & Plan Problem List: (1) Traumatic brain injury ICD Codes: S06.9X9A - Unspecified intracranial injury with loss of consciousness of unspecified duration, initial encounter (2) DEMENTIA IN OTH DISEASES CLASSD ELSWHR W BEHAVIORAL DISTURB ICD Codes: F02.81 - DEMENTIA IN OTH DISEASES CLASSD ELSWHR W BEHAVIORAL DISTURB Assessment & Plan Continue current treatment plan Justification for Cont. Inpt. Patient would decompensate in a less restrictive setting Request HC Surrog/Guard Advoc?: Yes Nahid Gupta DO Mar 27, 2017 17:26
[2017-03-27 18:00] VITALS: BP 125/76; PULSE 81; RESP 16; TEMP 98; O2SAT 95
[2017-03-27] MEDS: OLANZapine 5 MG TAB PO SCH (21:08)
[2017-03-28 05:30] VITALS: BP 138/76; PULSE 72; RESP 16; TEMP 98; O2SAT 96
[2017-03-28] MEDS: ATORVASTATIN 40 MG TAB PO SCH (08:54)
[2017-03-28] MEDS: FLUDROCORTISONE ACETATE 0.1 MG TAB PO SCH (08:54)
[2017-03-28] MEDS: NAPROXEN 500 MG TAB PO SCH ×2 (08:54→20:44)
[2017-03-28] MEDS: NICOTINE 21 MG/24 HR PATCH T-DERMAL SCH (09:00)
[2017-03-28] MEDS: REMOVE OLD PATCH T-DERMAL SCH (09:00)
[2017-03-28] MEDS: ALUMINUM/MAGNESIUM/SIMETH 30 ML CUP PO PRN (12:11)
--- NOTE | 2017-03-28 15:54 | HHI.PYPN ---
Subjective Chief Complaint: confusion with suicidal ideation noncompliance medication Remarks Patient seen in his room with nurse Vj, chart review, patient has to focus on discharge are somewhat irritable today wanting to be discharged from his . This remains this irritability. Compliant medications. For now continue treatment Review of Systems Except as stated in HPI: all other systems reviewed are Neg Mental Status Examination Appearance: Appropriate Consciousness: Alert Orientation: Person, Place (vaguely knows that is [facility] does not know location or state) Motor Activity: Normal gait Speech: Pressured (mildly) Language: Adequate Fund of Knowledge: Adequate Attention and Concentration: Other (poor to fair) Memory: Impaired, Remote (intact) Mood: Anxious Thought Process & Associations: Disorganized Thought Content: Other (disorganized) Hallucination Type: None (denies) Delusion Type: None (denies) Suicidal Ideation: No (denies at this time) Suicidal Plan: No (denies at this time) Suicidal Intention: No (denies at this time) Homicidal Ideation: No Homicidal Plan: No Homicidal Intention: No Insight: Poor Judgment: Poor Results Vitals/IOs Vital Signs Date Time Temp Pulse Resp B/P (MAP) Pulse Ox O2 Delivery O2 Flow Rate FiO2 03/28/17 05:30 98.0 72 16 138/76 (96) 96 Intake and Output 03/28/17 03/28/17 03/29/17 08:00 16:00 00:00 Intake Total 120 ml Balance 120 ml Assessment & Plan Problem List: (1) Traumatic brain injury ICD Codes: S06.9X9A - Unspecified intracranial injury with loss of consciousness of unspecified duration, initial encounter (2) DEMENTIA IN OTH DISEASES CLASSD ELSWHR W BEHAVIORAL DISTURB ICD Codes: F02.81 - DEMENTIA IN OTH DISEASES CLASSD ELSWHR W BEHAVIORAL DISTURB Assessment & Plan Patient continues demented irritable and labile. Compliant medications. For now continue treatment Estimated LOS: days Justification for Cont. Inpt. At this time patient would decompensate of placed in a lower level of care Discharge Planning Plans are for him to return home with family Request HC Surrog/Guard Advoc?: Yes Gerald aWrd MD Mar 28, 2017 15:54
--- NOTE | 2017-03-28 16:09 | PD.TTN ---
Patient Problems 1. Discharge planning 2. Medication compliance 3. Knowledge deficit 4. Lack of coping skills Progress Toward Goals Provider Present: Dr. Cuong Cotton Provider Input: Dr. Ward will assess patient for possible discharge today. Psychiatric Counselors Present: ABISAI Jones Psych Therapist Input: Patient is new to this counselor. Group Spec/RT/OT/BREWSTER Present: Heraclio Khalil OT Documentation Scribe: ABISAI Jones Date Resolved: Mar 28, 2017 America Richardson Mar 28, 2017 16:09
[2017-03-28 18:00] VITALS: BP 130/70; PULSE 71; RESP 16; TEMP 97.3; O2SAT 97
[2017-03-28] MEDS: OLANZapine 5 MG TAB PO SCH (20:44)
[2017-03-29 05:16] VITALS: BP 134/72; PULSE 68; RESP 18; TEMP 97.9; O2SAT 97
[2017-03-29] MEDS: NAPROXEN 500 MG TAB PO SCH (08:27)
[2017-03-29] MEDS: ATORVASTATIN 40 MG TAB PO SCH (08:27)
[2017-03-29] MEDS: FLUDROCORTISONE ACETATE 0.1 MG TAB PO SCH (08:27)
[2017-03-29] MEDS: REMOVE OLD PATCH T-DERMAL SCH (08:37)
[2017-03-29] MEDS: NICOTINE 21 MG/24 HR PATCH T-DERMAL SCH (08:37)
[2017-03-29] MEDS ORDERED: FLUD.1 PO (12:25)
[2017-03-29] MEDS ORDERED: ATOR40TA16 PO (12:25)
[2017-03-29] MEDS ORDERED: NAPR500 PO (12:25)
[2017-03-29] MEDS ORDERED: OLAN15TA PO (12:25)
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
== END 2017-03-29 16:06 | disposition home or self-care (01) | DRG 884 ==
LOC: NEPD 12:51 → NEDA 03-22 01:05 → H260 03-22 02:25 → H250 03-24 21:45
PROVIDERS: ADMIT Psychiatry & Neurology Psychiatry; ATTEND Psychiatry & Neurology Psychiatry
DX: F03.91 Unspecified dementia, unspecified severity, with behavioral disturbance (principal); G93.49 Other encephalopathy; S06.9X9S Unspecified intracranial injury with loss of consciousness of unspecified duration, sequela; R45.851 Suicidal ideations; M25.561 Pain in right knee; Z91.14 Patient's other noncompliance with medication regimen
CPT/HCPCS: 70450; 70553; 80048; 80053; 80061; 81001; 82607; 83036; 84443; 85025; 86592; 93005; 99285; A9579

== ENCOUNTER 2017-03-31 17:12 | Emergency (ER) | payer MEDICARE, OTHER ==
[~2017-03-31 17:12] MED LIST changes: +ANTI2CAP PO; +ATOR40TA16 PO; +CITA10SO5 PO; +CLON0.5T PO; +NAPR500 PO; +OLAN15TA PO; +PHEN-537 PO; +PILO5TAB3 PO
[2017-03-31 17:14] VITALS: BP 145/75; PULSE 80; RESP 16; TEMP 98; O2SAT 98
[2017-03-31 18:54] LABS: AMORPHOUS SEDIMENT, URINE RARE; BILIRUBIN, URINE NEG (NEG); BLOOD, URINE NEG (NEG); GLUCOSE,URINE NEG (NEG); KETONE, URINE NEG (NEG); MUCUS URINE FEW /lpf (OCC); NITRITE,URINE NEG (NEG); PH, URINE 6.5 (5.0-8.5); SQUAMOUS EPITHELIAL CELL URINE <1 /hpf (0-5); URINE COLOR YELLOW (YELLW/STRAW); URINE LEUKOCYTE ESTERASE TRACE (NEG)
[2017-03-31 18:57] LABS: AUTOMATED NEUTROPHIL # 4.3 TH/MM3 (1.8-7.7); BASOPHIL # 0.1 TH/MM3 (0-0.2); BASOPHIL % 0.9 % (0.0-2.0); EOSINOPHIL # 0.2 TH/MM3 (0-0.4); EOSINOPHIL % 3.3 % (0.0-4.0); HEMATOCRIT 37.9 % (39.0-51.0); HEMOGLOBIN 12.7 GM/DL (13.0-17.0); LYMPH % 29.6 % (9.0-44.0); LYMPHOCYTE # 2.2 TH/MM3 (1.0-4.8); MEAN CORPUSCULAR HEMOGLOBIN 31.3 PG (27.0-34.0); MEAN CORPUSCULAR HGB CONC 33.7 % (32.0-36.0); MEAN PLATELET VOLUME 8.6 FL (7.0-11.0); MONO % 8.6 % (0.0-8.0); MONOCYTE # 0.6 TH/MM3 (0-0.9); NEUT % 57.6 % (16.0-70.0); PLATELET COUNT 203 TH/MM3 (150-450); RED BLOOD COUNT 4.07 MIL/MM3 (4.50-5.90); RED CELL DISTRIBUTION WIDTH 12.8 % (11.6-17.2); WHITE BLOOD COUNT 7.5 TH/MM3 (4.0-11.0)
--- NOTE | 2017-03-31 19:07 | PD ---
HPI Chief Complaint: Psychiatric Symptoms Time Seen by Provider: 18:14 Travel History International Travel<30 days: No Contact w/Intl Traveler<30days: No Traveled to known affect area: No History of Present Illness HPI 71-year-old male presents to emergency department by family with complaints of psychosis. Patient denies all accusations and states he is here because his family made him come here. Patient denies suicidal or homicidal ideations. Patient reluctant to tell me if he has hallucinations but implies he does. Patient cannot tell me what kind hallucinations he has had. Denies illicit drug use, or other medication use outside of prescriptions. Patient denies fever, chills, chest pain, shortness of breath, abdominal pain, urinary problems. No family is present to give me a history. PFSH Past Medical History Bipolar Disorder: Yes Depression: Yes Diminished Hearing: No Psychiatric: Yes Seizures: No Past Surgical History Other Surgery: Yes ("I had a circumcision years ago") Social History Alcohol Use: No Tobacco Use: No Substance Use: No Allergies-Medications (Allergen,Severity, Reaction): Coded Allergies: No Known Allergies (Verified Allergy, Unknown, 03/22/17) Reported Meds & Prescriptions Reported Meds & Active Scripts Active Olanzapine 15 Mg Tab 15 Mg PO HS Naprosyn (Naproxen) 500 Mg Tab 500 Mg PO BID Fludrocortisone (Fludrocortisone Acetate) 0.1 Mg Tab 0.1 Mg PO DAILY Atorvastatin (Atorvastatin Calcium) 40 Mg Tab 40 Mg PO DAILY Reported Anti-Diarrheal (Loperamide HCl) 2 Mg Cap 2 Mg PO DIRECTED One capsule after each loose stool. Not to exceed 8 capsules per day. Pilocarpine 5 Mg Tab 5 Mg PO Q12HR PRN Citalopram HBr (Citalopram Hydrobromide) 20 Mg/10 Ml Solution 20 Mg PO DAILY Phenazopyridine (Phenazopyridine HCl) 200 Mg Tab 200 Mg PO Q8H PRN Review of Systems Except as stated in HPI: all other systems reviewed are Neg Physical Exam Narrative GENERAL: Well-nourished, well-developed patient. SKIN: Focused skin assessment warm/dry. HEAD: Normocephalic. EYES: No scleral icterus. No injection or drainage. NECK: Supple, trachea midline. No JVD or lymphadenopathy. GASTROINTESTINAL: Abdomen soft, non-tender, nondistended. MUSCULOSKELETAL: No cyanosis, or edema. BACK: Nontender without obvious deformity. No CVA tenderness. PSYCHIATRIC: No obvious delusional thought processes. Data Data Last Documented VS Vital Signs Date Time Temp Pulse Resp B/P (MAP) Pulse Ox O2 Delivery O2 Flow Rate FiO2 03/31/17 17:14 98.0 80 16 145/75 (98) 98 Room Air Orders Orders Complete Blood Count With Diff (03/31/17 18:14) Comprehensive Metabolic Panel (03/31/17 18:14) Urinalysis - C+S If Indicated (03/31/17 18:14) Psych Screen (03/31/17 18:14) Drug Screen, Random Urine (03/31/17 18:14) Labs Laboratory Tests Test 03/31/17 18:30 03/31/17 18:35 White Blood Count 7.5 TH/MM3 Red Blood Count 4.07 MIL/MM3 Hemoglobin 12.7 GM/DL Hematocrit 37.9 % Mean Corpuscular Volume 93.0 FL Mean Corpuscular Hemoglobin 31.3 PG Mean Corpuscular Hemoglobin Concent 33.7 % Red Cell Distribution Width 12.8 % Platelet Count 203 TH/MM3 Mean Platelet Volume 8.6 FL Neutrophils (%) (Auto) 57.6 % Lymphocytes (%) (Auto) 29.6 % Monocytes (%) (Auto) 8.6 % Eosinophils (%) (Auto) 3.3 % Basophils (%) (Auto) 0.9 % Neutrophils # (Auto) 4.3 TH/MM3 Lymphocytes # (Auto) 2.2 TH/MM3 Monocytes # (Auto) 0.6 TH/MM3 Eosinophils # (Auto) 0.2 TH/MM3 Basophils # (Auto) 0.1 TH/MM3 CBC Comment DIFF FINAL Differential Comment Blood Urea Nitrogen 23 MG/DL Creatinine 1.22 MG/DL Random Glucose 84 MG/DL Total Protein 6.5 GM/DL Albumin 3.8 GM/DL Calcium Level 8.3 MG/DL Alkaline Phosphatase 67 U/L Aspartate Amino Transf (AST/SGOT) 20 U/L Alanine Aminotransferase (ALT/SGPT) 29 U/L Total Bilirubin 0.5 MG/DL Sodium Level 145 MEQ/L Potassium Level 4.6 MEQ/L Chloride Level 111 MEQ/L Carbon Dioxide Level 28.3 MEQ/L Anion Gap 6 MEQ/L Estimat Glomerular Filtration Rate 58 ML/MIN Urine Color YELLOW Urine Turbidity CLEAR Urine pH 6.5 Urine Specific [place] 1.020 Urine Protein NEG mg/dL Urine Glucose (UA) NEG mg/dL Urine Ketones NEG mg/dL Urine Occult Blood NEG Urine Nitrite NEG Urine Bilirubin NEG Urine Urobilinogen LESS THAN 2.0 MG/DL Urine Leukocyte Esterase TRACE Urine RBC LESS THAN 1 /hpf Urine WBC LESS THAN 1 /hpf Urine Squamous Epithelial Cells <1 /hpf Urine Amorphous Sediment RARE Urine Mucus FEW /lpf Microscopic Urinalysis Comment CULT NOT INDICATED Urine Opiates Screen NEG Urine Barbiturates Screen NEG Urine Amphetamines Screen NEG Urine Benzodiazepines Screen NEG Urine Cocaine Screen NEG Urine Cannabinoids Screen NEG MDM Medical Decision Making Medical Screen Exam Complete: Yes Emergency Medical Condition: Yes Differential Diagnosis Psychosis, UTI, delirium, dementia Narrative Course 71-year-old male presents to emergency department by family with complaints of psychosis. Patient denies all accusations and states he is here because his family made him come here. Patient denies suicidal or homicidal ideations. Patient denies hallucinations auditory or visual. Denies illicit drug use, or other medication use outside of prescriptions. Patient denies fever, chills, chest pain, shortness of breath, abdominal pain, urinary problems. Vital signs stable Physical exam unremarkable. Patient no acute distress and answers questions appropriately. Because of the triage notes and information from the nurses, recommend patient be evaluated by psych. My exam and interview with the patient appears reasonable however, multiple sources state otherwise. Labs stable. No acute process to suggest a cause for his apparent delirium vs acute on chronic dementia. Pt cleared to see psych. Diagnosis Primary Impression: Dementia Qualified Codes: F03.91 - Unspecified dementia with behavioral disturbance Condition: Stable Ashlee Segovia Mar 31, 2017 19:07
[2017-03-31 19:11] LABS: ALBUMIN 3.8 GM/DL (3.4-5.0); AST (GOT) 20 U/L (15-37); BICARBONATE 28.3 MEQ/L (21.0-32.0); BLOOD UREA NITROGEN 23 MG/DL (7-18); CALCIUM 8.3 MG/DL (8.5-10.1); CHLORIDE 111 MEQ/L (98-107); CREATININE 1.22 MG/DL (0.60-1.30); GLOMERULAR FILTRATION RATE 58 ML/MIN (>89); GLUCOSE,RANDOM 84 MG/DL (74-106); SODIUM (NA) 145 MEQ/L (136-145)
[2017-03-31 19:12] LABS: ALT (GPT) 29 U/L (12-78)
[2017-03-31 19:15] LABS: ALKALINE PHOSPHATASE 67 U/L (45-117); TOTAL BILIRUBIN ADULT 0.5 MG/DL (0.2-1.0); TOTAL PROTEIN 6.5 GM/DL (6.4-8.2)
--- NOTE | 2017-03-31 21:13 | PD ---
Physical Exam Time Seen by Provider: 21:00 Data Data Last Documented VS Vital Signs Date Time Temp Pulse Resp B/P (MAP) Pulse Ox O2 Delivery O2 Flow Rate FiO2 03/31/17 17:14 98.0 80 16 145/75 (98) 98 Room Air Orders Orders Complete Blood Count With Diff (03/31/17 18:14) Comprehensive Metabolic Panel (03/31/17 18:14) Urinalysis - C+S If Indicated (03/31/17 18:14) Psych Screen (03/31/17 18:14) Drug Screen, Random Urine (03/31/17 18:14) Labs Laboratory Tests Test 03/31/17 18:30 03/31/17 18:35 White Blood Count 7.5 TH/MM3 Red Blood Count 4.07 MIL/MM3 Hemoglobin 12.7 GM/DL Hematocrit 37.9 % Mean Corpuscular Volume 93.0 FL Mean Corpuscular Hemoglobin 31.3 PG Mean Corpuscular Hemoglobin Concent 33.7 % Red Cell Distribution Width 12.8 % Platelet Count 203 TH/MM3 Mean Platelet Volume 8.6 FL Neutrophils (%) (Auto) 57.6 % Lymphocytes (%) (Auto) 29.6 % Monocytes (%) (Auto) 8.6 % Eosinophils (%) (Auto) 3.3 % Basophils (%) (Auto) 0.9 % Neutrophils # (Auto) 4.3 TH/MM3 Lymphocytes # (Auto) 2.2 TH/MM3 Monocytes # (Auto) 0.6 TH/MM3 Eosinophils # (Auto) 0.2 TH/MM3 Basophils # (Auto) 0.1 TH/MM3 CBC Comment DIFF FINAL Differential Comment Blood Urea Nitrogen 23 MG/DL Creatinine 1.22 MG/DL Random Glucose 84 MG/DL Total Protein 6.5 GM/DL Albumin 3.8 GM/DL Calcium Level 8.3 MG/DL Alkaline Phosphatase 67 U/L Aspartate Amino Transf (AST/SGOT) 20 U/L Alanine Aminotransferase (ALT/SGPT) 29 U/L Total Bilirubin 0.5 MG/DL Sodium Level 145 MEQ/L Potassium Level 4.6 MEQ/L Chloride Level 111 MEQ/L Carbon Dioxide Level 28.3 MEQ/L Anion Gap 6 MEQ/L Estimat Glomerular Filtration Rate 58 ML/MIN Urine Color YELLOW Urine Turbidity CLEAR Urine pH 6.5 Urine Specific [place] 1.020 Urine Protein NEG mg/dL Urine Glucose (UA) NEG mg/dL Urine Ketones NEG mg/dL Urine Occult Blood NEG Urine Nitrite NEG Urine Bilirubin NEG Urine Urobilinogen LESS THAN 2.0 MG/DL Urine Leukocyte Esterase TRACE Urine RBC LESS THAN 1 /hpf Urine WBC LESS THAN 1 /hpf Urine Squamous Epithelial Cells <1 /hpf Urine Amorphous Sediment RARE Urine Mucus FEW /lpf Microscopic Urinalysis Comment CULT NOT INDICATED Urine Opiates Screen NEG Urine Barbiturates Screen NEG Urine Amphetamines Screen NEG Urine Benzodiazepines Screen NEG Urine Cocaine Screen NEG Urine Cannabinoids Screen NEG MDM Medical Record Reviewed: Yes Supervised Visit with ARIANA: No Narrative Course Please see previous provider's notes. This patient has been cleared by psychiatry. He has no medical issue that would warrant additional hospitalization. Apparently he had an argument with his that escalated. The psychiatry team has spoken to the who is agreeable with having the patient, home. He follows with psychiatry at [facility]. He is stable for discharge. Diagnosis Primary Impression: Dementia Qualified Codes: F03.91 - Unspecified dementia with behavioral disturbance Condition: Stable Denny Garcia Mar 31, 2017 21:13
== END 2017-03-31 21:56 | disposition home or self-care (01) ==
LOC: NEPJ 17:12
DX: F03.91 Unspecified dementia, unspecified severity, with behavioral disturbance (principal); F31.9 Bipolar disorder, unspecified; Z79.899 Other long term (current) drug therapy
CPT/HCPCS: 80053; 80307; 81001; 85025; 99285

== ENCOUNTER 2017-04-08 09:18 | Inpatient (IN) | payer OTHER, MEDICARE ==
[~2017-04-08] VITALS: Ht 175.3 cm; Wt 97.1 kg
[~2017-04-08 09:18] MED LIST changes: -CELE40TA PO; -CLON.5 PO; -CLON0.5T PO; -ZYPR10TA PO
[2017-04-08 09:32] VITALS: BP 131/71; PULSE 73; RESP 16; TEMP 97.6; O2SAT 97
--- NOTE | 2017-04-08 09:50 | PD ---
HPI Chief Complaint: Psychiatric Symptoms Time Seen by Provider: 09:41 Travel History International Travel<30 days: No Contact w/Intl Traveler<30days: No Traveled to known affect area: No History of Present Illness HPI 71-year-old male presents to emergency department as a [place] act from [place]. Patient apparently stated that his had a hammer and was trying to hurt him. Patient states he does not want to be here. When asked how long he has been in the emergency department today he said it has "been hours" when in reality patient has been here for less than 30 minutes. Patient also says that he has not been to this hospital while and I saw him approximately one week ago for similar issues. Patient states that he has been to [facility] but again has been "a while". Patient denies fever or chills. Denies nausea vomiting or diarrhea. Denies urinary discomfort or urinary symptoms. Patient has no other complaints today. Patient denies suicidal or homicidal ideations. Denies hallucinations. Denies alcohol or other ingestions. Denies pain or other complaints today. PFSH Past Medical History Bipolar Disorder: Yes Depression: Yes Diminished Hearing: No Psychiatric: Yes Seizures: No Tetanus Vaccination: Unknown Influenza Vaccination: No Past Surgical History Surgical History: Unable to Obtain Other Surgery: Yes ("I had a circumcision years ago") Social History Alcohol Use: Yes (occu) Tobacco Use: No Substance Use: No Allergies-Medications (Allergen,Severity, Reaction): Coded Allergies: No Known Allergies (Verified Allergy, Unknown, 03/22/17) Reported Meds & Prescriptions Reported Meds & Active Scripts Active Olanzapine 15 Mg Tab 15 Mg PO HS Naprosyn (Naproxen) 500 Mg Tab 500 Mg PO BID Fludrocortisone (Fludrocortisone Acetate) 0.1 Mg Tab 0.1 Mg PO DAILY Atorvastatin (Atorvastatin Calcium) 40 Mg Tab 40 Mg PO DAILY Reported Anti-Diarrheal (Loperamide HCl) 2 Mg Cap 2 Mg PO DIRECTED One capsule after each loose stool. Not to exceed 8 capsules per day. Pilocarpine 5 Mg Tab 5 Mg PO Q12HR PRN Citalopram HBr (Citalopram Hydrobromide) 20 Mg/10 Ml Solution 20 Mg PO DAILY Phenazopyridine (Phenazopyridine HCl) 200 Mg Tab 200 Mg PO Q8H PRN Review of Systems Except as stated in HPI: all other systems reviewed are Neg Physical Exam Narrative GENERAL: Well-nourished, well-developed patient. SKIN: Focused skin assessment warm/dry. HEAD: Normocephalic. Atraumatic EYES: No scleral icterus. No injection or drainage. PERRLA, EOMI NECK: Supple, trachea midline. No JVD or lymphadenopathy. No midline tenderness CARDIOVASCULAR: Regular rate and rhythm without murmurs, gallops, or rubs. RESPIRATORY: Breath sounds equal bilaterally. No accessory muscle use. MUSCULOSKELETAL: No cyanosis, or edema. BACK: Nontender without obvious deformity. No CVA tenderness. PSYCHIATRIC: Delusional thought processes. No hallucinations. Anxious Data Data Last Documented VS Vital Signs Date Time Temp Pulse Resp B/P (MAP) Pulse Ox O2 Delivery O2 Flow Rate FiO2 04/08/17 09:32 97.6 73 16 131/71 (91) 97 Orders Orders Complete Blood Count With Diff (04/08/17 09:48) Comprehensive Metabolic Panel (04/08/17 09:48) Thyroid Stimulating Hormone (04/08/17 09:48) Urinalysis - C+S If Indicated (04/08/17 09:48) Psych Screen (04/08/17 09:48) Drug Screen, Random Urine (04/08/17 09:48) Admit Order (Ed Use Only) (04/08/17 12:58) Labs Laboratory Tests Test 04/08/17 09:45 04/08/17 11:00 White Blood Count 7.3 TH/MM3 Red Blood Count 4.15 MIL/MM3 Hemoglobin 13.3 GM/DL Hematocrit 38.1 % Mean Corpuscular Volume 91.8 FL Mean Corpuscular Hemoglobin 32.0 PG Mean Corpuscular Hemoglobin Concent 34.8 % Red Cell Distribution Width 12.8 % Platelet Count 202 TH/MM3 Mean Platelet Volume 8.8 FL Neutrophils (%) (Auto) 64.7 % Lymphocytes (%) (Auto) 25.5 % Monocytes (%) (Auto) 6.3 % Eosinophils (%) (Auto) 2.5 % Basophils (%) (Auto) 1.0 % Neutrophils # (Auto) 4.7 TH/MM3 Lymphocytes # (Auto) 1.9 TH/MM3 Monocytes # (Auto) 0.5 TH/MM3 Eosinophils # (Auto) 0.2 TH/MM3 Basophils # (Auto) 0.1 TH/MM3 CBC Comment DIFF FINAL Differential Comment Blood Urea Nitrogen 16 MG/DL Creatinine 0.98 MG/DL Random Glucose 97 MG/DL Total Protein 6.4 GM/DL Albumin 3.6 GM/DL Calcium Level 8.6 MG/DL Alkaline Phosphatase 74 U/L Aspartate Amino Transf (AST/SGOT) 15 U/L Alanine Aminotransferase (ALT/SGPT) 19 U/L Total Bilirubin 0.4 MG/DL Sodium Level 141 MEQ/L Potassium Level 4.0 MEQ/L Chloride Level 108 MEQ/L Carbon Dioxide Level 26.0 MEQ/L Anion Gap 7 MEQ/L Estimat Glomerular Filtration Rate 75 ML/MIN Thyroid Stimulating Hormone 3rd Gen 0.734 uIU/ML Urine Color LIGHT-YELLOW Urine Turbidity CLEAR Urine pH 6.0 Urine Specific [place] 1.008 Urine Protein NEG mg/dL Urine Glucose (UA) NEG mg/dL Urine Ketones NEG mg/dL Urine Occult Blood NEG Urine Nitrite NEG Urine Bilirubin NEG Urine Urobilinogen LESS THAN 2.0 MG/DL Urine Leukocyte Esterase NEG Urine WBC LESS THAN 1 /hpf Urine Mucus FEW /lpf Microscopic Urinalysis Comment CULT NOT INDICATED Urine Opiates Screen NEG Urine Barbiturates Screen NEG Urine Amphetamines Screen NEG Urine Benzodiazepines Screen NEG Urine Cocaine Screen NEG Urine Cannabinoids Screen NEG MDM Medical Decision Making Medical Screen Exam Complete: Yes Emergency Medical Condition: Yes Differential Diagnosis Dementia, cognitive disorder, delirium, Narrative Course 71-year-old male presents to emergency department as a [place] act from [place]. Patient apparently stated that his had a hammer and was trying to hurt him. Patient states he does not want to be here. When asked how long he has been in the emergency department today he said it has "been hours" when in reality patient has been here for less than 30 minutes. Patient also says that he has not been to this hospital while and I saw him approximately one week ago for similar issues. Patient states that he has been to [facility] but again has been "a while". Patient denies fever or chills. Denies nausea vomiting or diarrhea. Denies urinary discomfort or urinary symptoms. Patient has no other complaints today. Patient denies suicidal or homicidal ideations. Denies hallucinations. Denies alcohol or other ingestions. Denies pain or other complaints today. Vital signs stable Physical exam findings unremarkable. CBC & BMP Diagram 04/08/17 09:45 Total Protein 6.4, Albumin 3.6, Calcium Level 8.6, Alkaline Phosphatase 74, Aspartate Amino Transf (AST/SGOT) 15, Alanine Aminotransferase (ALT/SGPT) 19, Total Bilirubin 0.4 Patient is cleared to see psych. Diagnosis Primary Impression: Dementia Qualified Codes: F03.91 - Unspecified dementia with behavioral disturbance Condition: Stable Ashlee Segovia Apr 08, 2017 09:50
[2017-04-08 10:08] LABS: AUTOMATED NEUTROPHIL # 4.7 TH/MM3 (1.8-7.7); BASOPHIL # 0.1 TH/MM3 (0-0.2); EOSINOPHIL # 0.2 TH/MM3 (0-0.4); EOSINOPHIL % 2.5 % (0.0-4.0); HEMATOCRIT 38.1 % (39.0-51.0); HEMOGLOBIN 13.3 GM/DL (13.0-17.0); LYMPH % 25.5 % (9.0-44.0); LYMPHOCYTE # 1.9 TH/MM3 (1.0-4.8); MEAN CELL VOLUME 91.8 FL (80.0-100.0); MEAN CORPUSCULAR HGB CONC 34.8 % (32.0-36.0); MEAN PLATELET VOLUME 8.8 FL (7.0-11.0); MONO % 6.3 % (0.0-8.0); MONOCYTE # 0.5 TH/MM3 (0-0.9); NEUT % 64.7 % (16.0-70.0); PLATELET COUNT 202 TH/MM3 (150-450); RED BLOOD COUNT 4.15 MIL/MM3 (4.50-5.90); RED CELL DISTRIBUTION WIDTH 12.8 % (11.6-17.2); WHITE BLOOD COUNT 7.3 TH/MM3 (4.0-11.0)
[2017-04-08 10:29] LABS: ALBUMIN 3.6 GM/DL (3.4-5.0); AST (GOT) 15 U/L (15-37); BLOOD UREA NITROGEN 16 MG/DL (7-18); CALCIUM 8.6 MG/DL (8.5-10.1); CHLORIDE 108 MEQ/L (98-107); CREATININE 0.98 MG/DL (0.60-1.30); GLOMERULAR FILTRATION RATE 75 ML/MIN (>89); GLUCOSE,RANDOM 97 MG/DL (74-106); SODIUM (NA) 141 MEQ/L (136-145)
[2017-04-08 10:40] LABS: ALKALINE PHOSPHATASE 74 U/L (45-117); ALT (GPT) 19 U/L (12-78); TOTAL BILIRUBIN ADULT 0.4 MG/DL (0.2-1.0); TOTAL PROTEIN 6.4 GM/DL (6.4-8.2)
[2017-04-08 11:35] LABS: BILIRUBIN, URINE NEG (NEG); BLOOD, URINE NEG (NEG); GLUCOSE,URINE NEG (NEG); KETONE, URINE NEG (NEG); MUCUS URINE FEW /lpf (OCC); NITRITE,URINE NEG (NEG); URINE COLOR LIGHT-YELLOW (YELLW/STRAW); URINE LEUKOCYTE ESTERASE NEG (NEG)
[2017-04-08] MEDS ORDERED: traZODone HCL 50 MG TAB PO PRN (13:00)
[2017-04-08] MEDS ORDERED: diphenhydrAMINE HCL 50 MG CAP PO PRN (13:00)
[2017-04-08] MEDS ORDERED: LORazepam 2 MG/ML VIAL IM PRN (13:00)
[2017-04-08] MEDS ORDERED: diphenhydrAMINE HCL 50 MG/ML VIAL IM PRN (13:00)
[2017-04-08] MEDS ORDERED: LORazepam 1 MG TAB PO PRN (13:00)
[2017-04-08] MEDS ORDERED: MAGNESIUM HYDROXIDE SUSP 30 ML CUP PO PRN (13:00)
[2017-04-08 13:08] VITALS: BP 161/77; PULSE 76; RESP 18; TEMP 98; O2SAT 97
--- NOTE | 2017-04-08 13:39 | HHI.HP ---
Provisional Diagnosis Admission Date Apr 08, 2017 at 13:00 [place] I. Dementia with behavioral disturbance Certification of Person's Competence To Provide Express and Informed Consent I have personally examined Bryan Negron , a person being served at [facility] on, Apr 08, 2017 13:27. Express and informed consent means consent voluntarily given in writing, by a competent person, after sufficient explanation and disclosure of the subject matter involved to enable the person to make a knowing and willful decision without any element of force, fraud, deceit, duress, or other form of constraint or coercion. This person is 18 years of age or older, is not now known to be incompetent to consent to treatment with a guardian advocate, and does not have a health care surrogate or proxy currently making medical treatment decisions. I have found this person to be one of the following: [] Competent to provide express and informed consent, as defined above, for voluntary admission to this facility and is competent to provide express and informed consent for treatment. He/she has the consistent capacity to make well reasoned, willful, and knowing decisions concerning his or her medical or mental health treatment. The person fully and consistently understands the purpose of the admission for examination/placement and is fully capable of personally exercising all rights assured [place] [X] Incompetent to provide express and informed consent to voluntary admission, and this is incompetent to provide express and informed consent to treatment. The person must be transferred to involuntary status and a petition for a guardian advocate filed with the Circuit Court. [] Refusing to provide express and informed consent to voluntary admission but is competent to provide express and informed consent for treatment. The person must be discharged or transferred to involuntary status. Form shall be completed within 24 hours of a person's arrival at the receiving facility and filed in the clinical record of each person: 1. Admitted on a voluntary basis 2. Permitted to provide express and informed consent to his/her own treatment 3. Allowed to transfer from involuntary to voluntary status 4. Prior to permitting a person to consent to his or her own treatment after having been previously found incompetent to consent to treatment. History of Present Illness Capacity: Lacks Capacity HPI This is a 71-year-old male who presents under a [place] act. Apparently he was calling 911, stating his had a hammer and that she was "acting crazy". According to the law writer, the patient was found to be suicidal, stating he wanted to kill himself. When the officer asked the patient how he would do so, the patient explained he would hit himself in the head with a hammer. When the patient was brought to the emergency department at [facility], he apparently told the emergency room attending physician that he had been waiting for hours, when in reality it was less than 30 minutes. He did not recognize the emergency room physician, who he had seen approximately one week before. In fact, he did not recall his visit to the emergency department approximately one week ago. He also stated he has not been to his mental health appointments for "a while" when there is information that contradicts this. Upon interview, the patient is obviously a poor historian and appears demented. He does not know the current date, day of the week, name of this facility, time or situation. He does claim that his (of 47 years according to records) is trying to attack him with a hammer and that she has "gone crazy". While he told the officer who came to his home that he was suicidal, he is denying that at the present time. However, he remains paranoid of his and is willing to stop her by any means possible, including attacking her first. Review of Systems Psychiatric: COMPLAINS OF: Confusion, Agitation, Homicidal Ideation, Delusions Except as stated in HPI: all other systems reviewed are Neg Past Psych History Psychological trauma history Unknown for psychological trauma. The patient was admitted to psychiatry approximately one week ago. Violence risk - others (6 mos) High Violence risk - self (6 mos) High Substance Abuse History Drugs/Alcohol past 12 months Denied Past Family Social History Coded Allergies: No Known Allergies (Verified Allergy, Unknown, 03/22/17) Active Scripts Olanzapine (Olanzapine) 15 Mg Tab, 15 MG PO HS for health, #30 TAB 0 Refills Prov:Gerald Ward MD 03/29/17 Naproxen (Naprosyn) 500 Mg Tab, 500 MG PO BID for health, #60 TAB 0 Refills Prov:Gerald Ward MD 03/29/17 Fludrocortisone (Fludrocortisone) 0.1 Mg Tab, 0.1 MG PO DAILY for health, #30 TAB 0 Refills Prov:Gerald Ward MD 03/29/17 Atorvastatin (Atorvastatin) 40 Mg Tab, 40 MG PO DAILY for health, #30 TAB 0 Refills Prov:Gerald Ward MD 03/29/17 Reported Medications Loperamide (Anti-Diarrheal) 2 Mg Cap, 2 MG PO DIRECTED, CAP One capsule after each loose stool. Not to exceed 8 capsules per day. 03/21/17 Pilocarpine (Pilocarpine) 5 Mg Tab, 5 MG PO Q12HR Y for EYE PAIN, #120 TAB 0 Refills 03/21/17 Citalopram Hydrobromide (Citalopram HBr) 20 Mg/10 Ml Solution, 20 MG PO DAILY 03/21/17 Phenazopyridine (Phenazopyridine) 200 Mg Tab, 200 MG PO Q8H Y for DYSURIA, TAB 0 Refills 03/21/17 Current Medications Medications (Trade) Dose Ordered Sig/Lalo Route Start Time Stop Time Status Last Admin (Ativan) 1 mg Q6H PRN PO 04/08/17 13:00 (Ativan Inj) 1 mg Q6H PRN IM 04/08/17 13:00 (Benadryl) 50 mg HS PRN PO 04/08/17 13:00 (Benadryl Inj) 50 mg HS PRN IM 04/08/17 13:00 (Tylenol) 650 mg Q4H PRN PO 04/08/17 13:00 (Milk Of Magnesia Liq) 30 ml DAILY PRN PO 04/08/17 13:00 (Mag-Al Plus Susp Liq) 30 ml Q6H PRN PO 04/08/17 13:00 (Desyrel) 50 mg HS PRN PO 04/08/17 13:00 Family Psych History Unknown. Patient poor historian. Social History Patient reportedly lives with his of 47 years. He denies alcohol or substance abuse. He has a previous psychiatric diagnosis of schizoaffective disorder and was apparently admitted to this facility in 2009. Patient's Strengths (min. 2) Verbal and has access to healthcare. Physical Exam GENERAL: SKIN: Warm and dry. HEAD: Normocephalic. EYES: No scleral icterus. No injection or drainage. NECK: Supple, trachea midline. No JVD or lymphadenopathy. CARDIOVASCULAR: Regular rate and rhythm without murmurs, gallops, or rubs. RESPIRATORY: Breath sounds equal bilaterally. No accessory muscle use. GASTROINTESTINAL: Abdomen soft, non-tender, nondistended. MUSCULOSKELETAL: No cyanosis, or edema. BACK: Nontender without obvious deformity. No CVA tenderness. Vital Signs Vital Signs Date Time Temp Pulse Resp B/P (MAP) Pulse Ox O2 Delivery O2 Flow Rate FiO2 04/08/17 13:08 98.0 76 18 161/77 (105) 97 Room Air Lab Results Test 04/08/17 09:45 04/08/17 11:00 White Blood Count 7.3 TH/MM3 Red Blood Count 4.15 MIL/MM3 Hemoglobin 13.3 GM/DL Hematocrit 38.1 % Mean Corpuscular Volume 91.8 FL Mean Corpuscular Hemoglobin 32.0 PG Mean Corpuscular Hemoglobin Concent 34.8 % Red Cell Distribution Width 12.8 % Platelet Count 202 TH/MM3 Mean Platelet Volume 8.8 FL Neutrophils (%) (Auto) 64.7 % Lymphocytes (%) (Auto) 25.5 % Monocytes (%) (Auto) 6.3 % Eosinophils (%) (Auto) 2.5 % Basophils (%) (Auto) 1.0 % Neutrophils # (Auto) 4.7 TH/MM3 Lymphocytes # (Auto) 1.9 TH/MM3 Monocytes # (Auto) 0.5 TH/MM3 Eosinophils # (Auto) 0.2 TH/MM3 Basophils # (Auto) 0.1 TH/MM3 CBC Comment DIFF FINAL Differential Comment Blood Urea Nitrogen 16 MG/DL Creatinine 0.98 MG/DL Random Glucose 97 MG/DL Total Protein 6.4 GM/DL Albumin 3.6 GM/DL Calcium Level 8.6 MG/DL Alkaline Phosphatase 74 U/L Aspartate Amino Transf (AST/SGOT) 15 U/L Alanine Aminotransferase (ALT/SGPT) 19 U/L Total Bilirubin 0.4 MG/DL Sodium Level 141 MEQ/L Potassium Level 4.0 MEQ/L Chloride Level 108 MEQ/L Carbon Dioxide Level 26.0 MEQ/L Anion Gap 7 MEQ/L Estimat Glomerular Filtration Rate 75 ML/MIN Thyroid Stimulating Hormone 3rd Gen 0.734 uIU/ML Urine Color LIGHT-YELLOW Urine Turbidity CLEAR Urine pH 6.0 Urine Specific [place] 1.008 Urine Protein NEG mg/dL Urine Glucose (UA) NEG mg/dL Urine Ketones NEG mg/dL Urine Occult Blood NEG Urine Nitrite NEG Urine Bilirubin NEG Urine Urobilinogen LESS THAN 2.0 MG/DL Urine Leukocyte Esterase NEG Urine WBC LESS THAN 1 /hpf Urine Mucus FEW /lpf Microscopic Urinalysis Comment CULT NOT INDICATED Urine Opiates Screen NEG Urine Barbiturates Screen NEG Urine Amphetamines Screen NEG Urine Benzodiazepines Screen NEG Urine Cocaine Screen NEG Urine Cannabinoids Screen NEG Mental Status Examination Appearance: Disheveled Consciousness: Alert Orientation: Person Motor Activity: Normal gait Speech: Hesitant Language: Perseveration Fund of Knowledge: Inadequate Attention and Concentration: Inadequate Memory: Impaired Mood: Oppositional, Anxious Affect: Irritable, Labile Thought Process & Associations: Disorganized Thought Content: Bizarre thinking, Delusional Hallucination Type: None Delusion Type: Paranoid Suicidal Ideation: Yes Suicidal Plan: No Suicidal Intention: No Homicidal Ideation: Yes Homicidal Plan: No Homicidal Intention: No Insight: Poor Judgment: Poor Assessment & Plan Problem List: (1) Alzheimer's dementia with behavioral disturbance ICD Codes: G30.9 - Alzheimer's disease, unspecified; F02.81 - Dementia in other diseases classified elsewhere with behavioral disturbance (2) DEMENTIA IN OTH DISEASES CLASSD ELSWHR W BEHAVIORAL DISTURB ICD Codes: F02.81 - DEMENTIA IN OTH DISEASES CLASSD ELSWHR W BEHAVIORAL DISTURB Assessment & Plan Estimated LOS: days. 71-year-old demented individual with suicidal ideation, homicidal ideation and paranoid delusions. Although he has a history of psychiatric illness dating back to 2009, he appears to have dementia at this time as evidenced by his disorientation, memory problems, concentration problems , etc. As he is easily agitated, impulsive, delusional and making threats to harm himself as well as others, he is felt to be a high danger to himself and others. He is therefore being admitted for further evaluation and treatment. This physician has ordered a CBC and comprehensive metabolic panel to determine if any infectious process or metabolic process is causing or contributing to the patient's confusion and paranoia. Additionally, this physician ordered a thyroid-stimulating hormone level, vitamin B-12 level and vitamin D level, as deficiencies in these areas can also cause paranoia and behavioral disturbances. The patient will also have an EKG to determine his cardiac conduction status as many of the psychotropic medicines being prescribed Tenex effect the electrical system of his heart. This physician is asking for a hospitalist consult as the patient has a history of multiple medical issues and is not competent to provide adequate history or information. This physician has also spoken to the patient's nurse regarding his recent behavior. Finally, case management will be involved to assist with further information gathering and disposition planning. Malachi Rosas MD Apr 08, 2017 13:39
--- NOTE | 2017-04-08 14:37 | PD.CONS ---
HPI Service [facility] Hospitalists Consult Requested By Psychiatric services Reason for Consult Medical management Primary Care Physician Unknown Diagnoses: History of Present Illness This is a 71-year-old male with past medical history significant for dementia, bipolar disorder, depression, history of traumatic brain injury and dyslipidemia who presents to [facility] as a [place]te act from [place]. He is unable to give me any reliable history. Per review of the medical record, patient was apparently stating that his had a hammer was trying to hurt him and called 911 himself. Reportedly, patient stated he was going to kill himself. Hospitalist services have been consulted for medical management. Patient seen and examined. Patient reports he does not know how or why he is here. Patient's only complaint at present is his heart hurts because he is forced to be here. He wants to go home. He denies any other acute medical complaints. Denies any fever or chills. Denies any cough, shortness of breath or chest pain. Denies any nausea, vomiting or abdominal pain. He denies any urinary difficulties, diarrhea or constipation. Interestingly, patient is unable to give me any past medical history however he is able to recall his name , the year, the month and that he is currently in [facility]. According to the J pod nurse, patient was extremely agitated earlier and demanding to have a tooth pulled. He was given Ativan and is now much calmer. Review of Systems Except as stated in HPI: all other systems reviewed are Neg Past Family Social History Allergies: Coded Allergies: No Known Allergies (Verified Allergy, Unknown, 03/22/17) Past Medical History Dementia Depression Dyslipidemia Glaucoma History of traumatic brain injury Past Surgical History Circumcision Reported Medications Olanzapine 15 Mg Tab 15 Mg PO HS Naprosyn (Naproxen) 500 Mg Tab 500 Mg PO BID Fludrocortisone (Fludrocortisone Acetate) 0.1 Mg Tab 0.1 Mg PO DAILY Atorvastatin (Atorvastatin Calcium) 40 Mg Tab 40 Mg PO DAILY Anti-Diarrheal (Loperamide HCl) 2 Mg Cap 2 Mg PO DIRECTED One capsule after each loose stool. Not to exceed 8 capsules per day. Pilocarpine 5 Mg Tab 5 Mg PO Q12HR PRN Citalopram HBr (Citalopram Hydrobromide) 20 Mg/10 Ml Solution 20 Mg PO DAILY Phenazopyridine (Phenazopyridine HCl) 200 Mg Tab 200 Mg PO Q8H PRN Active Ordered Medications Current Medications Medications (Trade) Dose Ordered Sig/Lalo Route Start Time Stop Time Status Last Admin (Ativan) 1 mg Q6H PRN PO 04/08/17 13:00 (Ativan Inj) 1 mg Q6H PRN IM 04/08/17 13:00 04/08/17 13:45 (Benadryl) 50 mg HS PRN PO 04/08/17 13:00 (Benadryl Inj) 50 mg HS PRN IM 04/08/17 13:00 (Tylenol) 650 mg Q4H PRN PO 04/08/17 13:00 (Milk Of Magnesia Liq) 30 ml DAILY PRN PO 04/08/17 13:00 (Mag-Al Plus Susp Liq) 30 ml Q6H PRN PO 04/08/17 13:00 (Desyrel) 50 mg HS PRN PO 04/08/17 13:00 Family History Patient is unable to recall any family medical history Social History Patient endorses alcohol use however he cannot quantify the amount. He denies any tobacco use or illicit drug use. Physical Exam Vital Signs Vital Signs Date Time Temp Pulse Resp B/P (MAP) Pulse Ox O2 Delivery O2 Flow Rate FiO2 04/08/17 13:08 98.0 76 18 161/77 (105) 97 Room Air 04/08/17 09:32 97.6 73 16 131/71 (91) 97 Physical Exam GENERAL: This is a well-nourished, well-developed slightly disheveled elderly male patient, in no apparent distress. Awake and alert. At present, he is oriented to self, place and time. SKIN: Cool and dry. (+)circular area of increased redness ?ecchymosis over left cheek. HEAD: Atraumatic. Normocephalic. No temporal or scalp tenderness. EYES: Pupils equal round and reactive. Extraocular motions intact. No scleral icterus. No injection or drainage. ENT: Nose without bleeding or purulent drainage. Throat without erythema, tonsillar hypertrophy or exudate. Uvula midline. Airway patent. NECK: Trachea midline. No lymphadenopathy. Supple, nontender, no meningeal signs. CARDIOVASCULAR: Regular rate and rhythm without murmurs, gallops, or rubs. RESPIRATORY: Clear to auscultation. Breath sounds equal bilaterally. No wheezes , rales, or rhonchi. GASTROINTESTINAL: Abdomen soft, non-tender, nondistended. No hepato-splenomegaly , or palpable masses. No guarding. MUSCULOSKELETAL: Extremities without clubbing, cyanosis, or edema. No joint tenderness, effusion, or edema noted. No calf tenderness. NEUROLOGICAL: Awake and alert. Able to move all extremities spontaneously. No focal neurologic findings. Normal speech. PSYCHIATRIC: Appropriate mood and affect. Inappropriate judgment and insight. Cooperative, following commands. Laboratory Laboratory Tests Test 04/08/17 09:45 04/08/17 11:00 White Blood Count 7.3 Red Blood Count 4.15 Hemoglobin 13.3 Hematocrit 38.1 Mean Corpuscular Volume 91.8 Mean Corpuscular Hemoglobin 32.0 Mean Corpuscular Hemoglobin Concent 34.8 Red Cell Distribution Width 12.8 Platelet Count 202 Mean Platelet Volume 8.8 Neutrophils (%) (Auto) 64.7 Lymphocytes (%) (Auto) 25.5 Monocytes (%) (Auto) 6.3 Eosinophils (%) (Auto) 2.5 Basophils (%) (Auto) 1.0 Neutrophils # (Auto) 4.7 Lymphocytes # (Auto) 1.9 Monocytes # (Auto) 0.5 Eosinophils # (Auto) 0.2 Basophils # (Auto) 0.1 CBC Comment DIFF FINAL Differential Comment Blood Urea Nitrogen 16 Creatinine 0.98 Random Glucose 97 Total Protein 6.4 Albumin 3.6 Calcium Level 8.6 Alkaline Phosphatase 74 Aspartate Amino Transf (AST/SGOT) 15 Alanine Aminotransferase (ALT/SGPT) 19 Total Bilirubin 0.4 Sodium Level 141 Potassium Level 4.0 Chloride Level 108 Carbon Dioxide Level 26.0 Anion Gap 7 Estimat Glomerular Filtration Rate 75 Thyroid Stimulating Hormone 3rd Gen 0.734 Urine Color LIGHT-YELLOW Urine Turbidity CLEAR Urine pH 6.0 Urine Specific [place] 1.008 Urine Protein NEG Urine Glucose (UA) NEG Urine Ketones NEG Urine Occult Blood NEG Urine Nitrite NEG Urine Bilirubin NEG Urine Urobilinogen LESS THAN 2.0 Urine Leukocyte Esterase NEG Urine WBC LESS THAN 1 Urine Mucus FEW Microscopic Urinalysis Comment CULT NOT INDICATED Urine Opiates Screen NEG Urine Barbiturates Screen NEG Urine Amphetamines Screen NEG Urine Benzodiazepines Screen NEG Urine Cocaine Screen NEG Urine Cannabinoids Screen NEG Result Diagram: 04/08/1745 04/08/1745 Assessment and Plan Assessment and Plan Dementia with behavioral disturbance Suicidal ideation - Management per psychiatric team - Patient just admitted 03/22/17 with extensive workup including neurology consultation - RPR negative 03/22/17. Brain MRI 03/25/17 showing no acute intracranial process - TSH 0.734 - UDS negative Hypertensive - Not on any antihypertensive medications at home. Suspect secondary to agitation. Would not recommend starting on any antidepressants at present. - Continue to monitor BP Dyslipidemia/glaucoma - Resume home medications once medication reconciliation updated Thank you very much for this consultation. Will follow along with you. Jasmin Peterson Apr 08, 2017 14:37
[2017-04-08] MEDS: ACETAMINOPHEN 325 MG TAB PO PRN (15:48)
[2017-04-08 15:53] VITALS: BP 123/69; PULSE 83; RESP 18; TEMP 98; O2SAT 98
[2017-04-08 18:14] VITALS: BP 121/82; PULSE 76; RESP 18; TEMP 98.4; O2SAT 99
[2017-04-09 05:00] VITALS: BP 123/65; PULSE 81; RESP 17; TEMP 97.5; O2SAT 97
[2017-04-09 08:26] LABS: AUTOMATED NEUTROPHIL # 4.4 TH/MM3 (1.8-7.7); BASOPHIL % 0.6 % (0.0-2.0); EOSINOPHIL # 0.2 TH/MM3 (0-0.4); EOSINOPHIL % 3.2 % (0.0-4.0); HEMATOCRIT 39.8 % (39.0-51.0); HEMOGLOBIN 13.5 GM/DL (13.0-17.0); LYMPH % 29.1 % (9.0-44.0); LYMPHOCYTE # 2.1 TH/MM3 (1.0-4.8); MEAN CELL VOLUME 92.3 FL (80.0-100.0); MEAN CORPUSCULAR HEMOGLOBIN 31.4 PG (27.0-34.0); MEAN PLATELET VOLUME 8.9 FL (7.0-11.0); MONO % 7.1 % (0.0-8.0); MONOCYTE # 0.5 TH/MM3 (0-0.9); PLATELET COUNT 218 TH/MM3 (150-450); RED BLOOD COUNT 4.31 MIL/MM3 (4.50-5.90); WHITE BLOOD COUNT 7.4 TH/MM3 (4.0-11.0)
[2017-04-09] MEDS: ACETAMINOPHEN 325 MG TAB PO PRN (13:51)
[2017-04-09 14:16] LABS: ALBUMIN 3.6 GM/DL (3.4-5.0); ALT (GPT) 22 U/L (12-78); AST (GOT) 12 U/L (15-37); BICARBONATE 29.6 MEQ/L (21.0-32.0); BLOOD UREA NITROGEN 20 MG/DL (7-18); CALCIUM 8.5 MG/DL (8.5-10.1); CHLORIDE 107 MEQ/L (98-107); CHOLESTEROL 103 MG/DL (120-200); CREATININE 0.94 MG/DL (0.60-1.30); GLOMERULAR FILTRATION RATE 79 ML/MIN (>89); GLUCOSE,RANDOM 81 MG/DL (74-106); SODIUM (NA) 143 MEQ/L (136-145)
[2017-04-09 14:30] LABS: HEMOGLOBIN A1C 5.1 % (4.3-6.0)
[2017-04-09 14:42] LABS: ALKALINE PHOSPHATASE 74 U/L (45-117); CHOLESTEROL/ HDL RATIO 2.89 RATIO; HDL CHOLESTEROL 35.6 MG/DL (40.0-60.0); LDL CHOLESTEROL 52 MG/DL (0-99); TOTAL BILIRUBIN ADULT 0.3 MG/DL (0.2-1.0); TOTAL PROTEIN 6.5 GM/DL (6.4-8.2); TRIGLYCERIDES 75 MG/DL (42-150)
--- NOTE | 2017-04-09 16:37 | EKG ---
Date Performed: 04/09/2017 Time Performed: 13:56:35 PTAGE: 71 years EKG: Sinus rhythm LOW QRS VOLTAGE IN EXTREMITY LEADS BORDERLINE ECG PREVIOUS TRACING : 03/22/2017 01.48 Compared to prior tracing no significant change DOCTOR: Nina Triplett Interpretating Date/Time 04/09/2017 16:36:07
--- NOTE | 2017-04-09 16:46 | HHI.PYPN ---
Subjective Remarks This is a request for second opinion. Admission note was reviewed and I agree with this contents. Case was discussed with nursing. Patient was seen and evaluated. Patient is alert and oriented 2. He has poor insight and cannot recall any of his actions or thoughts concerning his admission. Says he does not remember wanting to hurt himself or others with a hammer. Cannot recall any arguments he may have had with family. [place] through the interview he demands to be discharged and later refuses to speak any longer. Mental Status Examination Appearance: Disheveled Consciousness: Alert Orientation: Person Motor Activity: Normal gait Speech: Hesitant Language: Perseveration Fund of Knowledge: Inadequate Attention and Concentration: Inadequate Memory: Impaired Mood: Oppositional, Anxious Affect: Irritable, Labile Thought Process & Associations: Disorganized Thought Content: Bizarre thinking, Delusional Hallucination Type: None Delusion Type: Paranoid Suicidal Ideation: No Suicidal Plan: No Suicidal Intention: No Homicidal Ideation: No Homicidal Plan: No Homicidal Intention: No Insight: Poor Judgment: Poor Results Labs Test 04/09/17 07:22 04/09/17 12:48 White Blood Count 7.4 TH/MM3 Red Blood Count 4.31 MIL/MM3 Hemoglobin 13.5 GM/DL Hematocrit 39.8 % Mean Corpuscular Volume 92.3 FL Mean Corpuscular Hemoglobin 31.4 PG Mean Corpuscular Hemoglobin Concent 34.0 % Red Cell Distribution Width 13.0 % Platelet Count 218 TH/MM3 Mean Platelet Volume 8.9 FL Neutrophils (%) (Auto) 60.0 % Lymphocytes (%) (Auto) 29.1 % Monocytes (%) (Auto) 7.1 % Eosinophils (%) (Auto) 3.2 % Basophils (%) (Auto) 0.6 % Neutrophils # (Auto) 4.4 TH/MM3 Lymphocytes # (Auto) 2.1 TH/MM3 Monocytes # (Auto) 0.5 TH/MM3 Eosinophils # (Auto) 0.2 TH/MM3 Basophils # (Auto) 0.0 TH/MM3 CBC Comment DIFF FINAL Differential Comment Blood Urea Nitrogen 20 MG/DL Creatinine 0.94 MG/DL Random Glucose 81 MG/DL Total Protein 6.5 GM/DL Albumin 3.6 GM/DL Calcium Level 8.5 MG/DL Alkaline Phosphatase 74 U/L Aspartate Amino Transf (AST/SGOT) 12 U/L Alanine Aminotransferase (ALT/SGPT) 22 U/L Total Bilirubin 0.3 MG/DL Sodium Level 143 MEQ/L Potassium Level 4.0 MEQ/L Chloride Level 107 MEQ/L Carbon Dioxide Level 29.6 MEQ/L Anion Gap 6 MEQ/L Estimat Glomerular Filtration Rate 79 ML/MIN Hemoglobin A1c 5.1 % Triglycerides Level 75 MG/DL Cholesterol Level 103 MG/DL LDL Cholesterol 52 MG/DL HDL Cholesterol 35.6 MG/DL Cholesterol/HDL Ratio 2.89 RATIO Vitamin B12 Level 463 PG/ML 25-Hydroxy Vitamin D Total 26.2 ng/ML Vitals/IOs Vital Signs Date Time Temp Pulse Resp B/P (MAP) Pulse Ox O2 Delivery O2 Flow Rate FiO2 04/09/17 05:00 97.5 81 17 123/65 (84) 97 04/08/17 13:08 Room Air Assessment & Plan Problem List: (1) Alzheimer's dementia with behavioral disturbance ICD Codes: G30.9 - Alzheimer's disease, unspecified; F02.81 - Dementia in other diseases classified elsewhere with behavioral disturbance (2) DEMENTIA IN OTH DISEASES CLASSD ELSWHR W BEHAVIORAL DISTURB ICD Codes: F02.81 - DEMENTIA IN OTH DISEASES CLASSD ELSWHR W BEHAVIORAL DISTURB Assessment & Plan I agree with the first opinion to continue petition. Criteria include acute psychosis Justification for Cont. Inpt. Patient will decompensate in a less restrictive setting Nahid Gupta DO Apr 09, 2017 16:46
[2017-04-09 18:20] VITALS: BP 132/69; PULSE 74; RESP 18; TEMP 97.8; O2SAT 98
[2017-04-10 06:00] VITALS: BP 119/72; PULSE 70; RESP 18; TEMP 97.9; O2SAT 96
--- NOTE | 2017-04-10 10:17 | HHI.PR ---
Subjective Remarks Follow up suicidal ideation, dementia, HTN and dyslipidemia. Patient seen and examined, sitting up in chair comfortably. When introducing self to patient jokingly asks "Who are you? Are you going to kill me?". Patient reassured and attempted to reorient. Denies any new acute complaints. Has been eating well. Denies any nausea or vomiting. Ambulating well. Does complain of chronic bilateral knee aches. Usually takes Ibuprofen at home, requesting some here. Vitals stable. No acute changes. Denies any fever, chills , chest pain. Objective Vitals Vital Signs Date Time Temp Pulse Resp B/P (MAP) Pulse Ox O2 Delivery O2 Flow Rate FiO2 04/10/17 06:00 97.9 70 18 119/72 (88) 96 04/09/17 18:20 97.8 74 18 132/69 (90) 98 I/O 04/09/17 04/09/17 04/09/17 04/10/17 04/10/17 04/10/17 07:00 15:00 23:00 07:00 15:00 23:00 Intake Total 120 ml Output Total 1 ml Balance 119 ml Intake Oral 120 ml Output Urine Total 1 ml Result Diagram: 04/09/17 0722 04/09/17 1248 Objective Remarks GENERAL: This is a well-nourished, well-developed slightly disheveled elderly male patient, in no apparent distress. Awake and alert. SKIN: Cool and dry. HEAD: Atraumatic. Normocephalic. EYES: Pupils equal round and reactive. Extraocular motions intact. No scleral icterus. No injection or drainage. ENT: Nose without bleeding or purulent drainage. Throat without erythema, tonsillar hypertrophy or exudate. Uvula midline. Airway patent. NECK: Trachea midline. No lymphadenopathy. Supple, nontender, no meningeal signs. CARDIOVASCULAR: Regular rate and rhythm without murmurs, gallops, or rubs. RESPIRATORY: Clear to auscultation. Breath sounds equal bilaterally. No wheezes , rales, or rhonchi. GASTROINTESTINAL: Abdomen soft, non-tender, nondistended. No guarding. MUSCULOSKELETAL: Extremities without clubbing, cyanosis, or edema. No joint tenderness, effusion, or edema noted. No calf tenderness. NEUROLOGICAL: Awake and alert. Able to move all extremities spontaneously. No focal neurologic findings. Normal speech. PSYCHIATRIC: Appropriate mood and affect. Inappropriate judgment and insight. Cooperative, following commands. A/P Assessment and Plan Dementia with behavioral disturbance Suicidal ideation - Management per psychiatric team - Patient just admitted 03/22/17 with extensive workup including neurology consultation. - RPR negative 03/22/17. Brain MRI 03/25/17 showing no acute intracranial process. - TSH 0.734. - UDS negative. - Continue to monitor. Hypertensive - Now well controlled. - Not on any antihypertensive medications at home. Suspect secondary to agitation. - Continue to monitor BP Dyslipidemia/glaucoma - Resume home medications once medication reconciliation updated Chronic knee pain - Will start on Ibuprofen as needed. Laura Gatica Apr 10, 2017 10:17
--- NOTE | 2017-04-10 14:03 | HHI.PYPN ---
Subjective Remarks Patient was seen and case discussed with nursing. Patient is not on any medication at this time. Apparently he is on Zyprexa at home and we will have nursing called guardian to discuss the prospect of latuda given its preferable metabolic profile. Patient is alert and oriented 3. Describes his mood this morning as "agitated." He is looking forward to seeing his "clumpy ." Insight remains poor Mental Status Examination Appearance: Disheveled Consciousness: Alert Orientation: Person, Place, Date/Time Motor Activity: Normal gait Speech: Hesitant Language: Perseveration Fund of Knowledge: Inadequate Attention and Concentration: Inadequate Memory: Impaired Mood: Oppositional, Anxious Affect: Irritable Thought Process & Associations: Disorganized Thought Content: Bizarre thinking, Delusional Hallucination Type: None Delusion Type: Paranoid Suicidal Ideation: No Suicidal Plan: No Suicidal Intention: No Homicidal Ideation: No Homicidal Plan: No Homicidal Intention: No Insight: Poor Judgment: Poor Results Vitals/IOs Vital Signs Date Time Temp Pulse Resp B/P (MAP) Pulse Ox O2 Delivery O2 Flow Rate FiO2 04/10/17 06:00 97.9 70 18 119/72 (88) 96 04/08/17 13:08 Room Air Intake and Output 04/10/17 04/10/17 04/11/17 08:00 16:00 00:00 Intake Total 120 ml Output Total 1 ml Balance 119 ml Assessment & Plan Problem List: (1) Alzheimer's dementia with behavioral disturbance ICD Codes: G30.9 - Alzheimer's disease, unspecified; F02.81 - Dementia in other diseases classified elsewhere with behavioral disturbance (2) DEMENTIA IN OTH DISEASES CLASSD ELSWHR W BEHAVIORAL DISTURB ICD Codes: F02.81 - DEMENTIA IN OTH DISEASES CLASSD ELSWHR W BEHAVIORAL DISTURB Assessment & Plan Continue current treatment plan Justification for Cont. Inpt. Patient would decompensate in a less restrictive setting Nahid Gupta DO Apr 10, 2017 14:03
[2017-04-10 18:06] VITALS: BP 116/62; PULSE 73; RESP 18; TEMP 97.8; O2SAT 98
[2017-04-10] MEDS: ALUMINUM/MAGNESIUM/SIMETH 30 ML CUP PO PRN (20:54)
[2017-04-10] MEDS: ACETAMINOPHEN 325 MG TAB PO PRN (20:56)
[2017-04-11 06:52] VITALS: BP 121/77; PULSE 66; RESP 15; TEMP 98; O2SAT 96
[2017-04-11 07:06] VITALS: BP 123/68; PULSE 75
--- NOTE | 2017-04-11 08:56 | HHI.PYPN ---
Subjective Remarks Patient seen in day room with nurse Ramila, chart review, patient compliant medication. Patient initially seen by Dr. Malachi Rosas who did the initial psychiatric evaluation. I completed the initial psychiatric template orders. Patient somewhat intrusive intense pushing to be discharged to his . He continues diffusely confused and disoriented. We have not had communication with as to her issues related to his behavior. For now continue treatment will attempt to arrange meetings with patient's on next 1-2 days Review of Systems Except as stated in HPI: all other systems reviewed are Neg Mental Status Examination Appearance: Disheveled Consciousness: Alert Orientation: Person, Place, Date/Time Motor Activity: Normal gait Speech: Hesitant Language: Perseveration Fund of Knowledge: Inadequate Attention and Concentration: Inadequate Memory: Impaired Mood: Oppositional, Anxious Affect: Irritable Thought Process & Associations: Disorganized Thought Content: Bizarre thinking, Delusional Hallucination Type: None Delusion Type: Paranoid Suicidal Ideation: No Suicidal Plan: No Suicidal Intention: No Homicidal Ideation: No Homicidal Plan: No Homicidal Intention: No Insight: Poor Judgment: Poor Results Vitals/IOs Vital Signs Date Time Temp Pulse Resp B/P (MAP) Pulse Ox O2 Delivery O2 Flow Rate FiO2 04/11/17 07:06 75 123/68 (86) 04/11/17 06:52 98.0 15 96 04/08/17 13:08 Room Air Assessment & Plan Problem List: (1) Alzheimer's dementia with behavioral disturbance ICD Codes: G30.9 - Alzheimer's disease, unspecified; F02.81 - Dementia in other diseases classified elsewhere with behavioral disturbance (2) DEMENTIA IN OTH DISEASES CLASSD ELSWHR W BEHAVIORAL DISTURB ICD Codes: F02.81 - DEMENTIA IN OTH DISEASES CLASSD ELSWHR W BEHAVIORAL DISTURB Assessment & Plan Estimated LOS: days patient continues confused and demented, is questionable is compliant with medication. Attempt arrangement patient's month to determine further treatment and placement issues Justification for Cont. Inpt. At this time patient will decompensate of placed in a lower level of care Discharge Planning We need to discuss with patient's alternative of home with in-house services versus a placement Request HC Surrog/Guard Advoc?: Yes Gerald Ward MD Apr 11, 2017 08:56
--- NOTE | 2017-04-11 10:29 | HHI.PR ---
Subjective Remarks Follow up for suicidal ideation, dementia, hypertension, chronic knee pain. The patient is seen sleeping in his room, easily awakens. He has no specific medical complaints including no headache, dizziness, cough, chest pain, shortness of breath, or abdominal complaints. He states his knee pain is about the same but the ibuprofen does help. Discussed with RN, no acute concerns. Objective Vitals Vital Signs Date Time Temp Pulse Resp B/P (MAP) Pulse Ox O2 Delivery O2 Flow Rate FiO2 04/11/17 07:06 75 123/68 (86) 04/11/17 06:52 98.0 66 15 121/77 (92) 96 04/10/17 18:06 97.8 73 18 116/62 (80) 98 I/O 04/10/17 04/10/17 04/10/17 04/11/17 04/11/17 04/11/17 07:00 15:00 23:00 07:00 15:00 23:00 Intake Total 120 ml 2040 ml 540 ml Output Total 1 ml Balance 119 ml 2040 ml 540 ml Intake Oral 120 ml 2040 ml 540 ml Output Urine Total 1 ml # Voids 2 1 1 Result Diagram: 04/09/17 0722 04/09/17 1248 Objective Remarks GENERAL: Well-nourished, well-developed male patient in NAD. SKIN: Warm and dry. No rash. HEENT: Normocephalic. Atraumatic. Pupils equal and round. Mucous membranes pink and moist. CARDIOVASCULAR: Regular rate and rhythm. S1, S2 noted. No murmur appreciated. RESPIRATORY: No accessory muscle use. Clear to auscultation. Breath sounds equal bilaterally. GASTROINTESTINAL: Abdomen soft, non-tender, nondistended. Normoactive bowel sounds x4. MUSCULOSKELETAL: No obvious deformities. Extremities without clubbing, cyanosis , or edema. NEUROLOGICAL: Awake and alert. No obvious cranial nerve deficits. Motor grossly within normal limits. Normal speech. Medications and IVs Current Medications Medications (Trade) Dose Ordered Sig/Lalo Route Start Time Stop Time Status Last Admin (Ativan) 1 mg Q6H PRN PO 04/08/17 13:00 (Ativan Inj) 1 mg Q6H PRN IM 04/08/17 13:00 04/08/17 13:45 (Benadryl) 50 mg HS PRN PO 04/08/17 13:00 (Benadryl Inj) 50 mg HS PRN IM 04/08/17 13:00 (Tylenol) 650 mg Q4H PRN PO 04/08/17 13:00 04/10/17 20:56 (Milk Of Magnesia Liq) 30 ml DAILY PRN PO 04/08/17 13:00 (Mag-Al Plus Susp Liq) 30 ml Q6H PRN PO 04/08/17 13:00 04/10/17 20:54 (Desyrel) 50 mg HS PRN PO 04/08/17 13:00 (Motrin) 400 mg Q6H PRN PO 04/10/17 10:30 (Latuda) 40 mg DAILY PO 04/11/17 17:00 A/P Assessment and Plan 71-year-old male with past medical history significant for dementia, bipolar disorder, depression, history of traumatic brain injury and dyslipidemia who presents to [facility] as a Almonte act from [place]. Dementia with behavioral disturbance, Suicidal ideation - Management per psychiatric team - Patient just admitted 03/22/17 with extensive workup including neurology consultation. - RPR negative 03/22/17. Brain MRI 03/25/17 showing no acute intracranial process. - TSH wnl - UDS negative. - Continue to monitor. Hypertensive - Now well controlled. - Not on any antihypertensive medications at home. Suspect secondary to agitation. - Continue to monitor BP Dyslipidemia/glaucoma - Resume home medications once medication reconciliation updated Chronic knee pain - continue on Ibuprofen as needed. DVT Prophylaxis: ambulation April Zhong PA-C Apr 11, 2017 10:29 am
[2017-04-11] MEDS: ACETAMINOPHEN 325 MG TAB PO PRN (10:44)
[2017-04-11] MEDS: IBUPROFEN 400 MG TAB PO PRN (14:21)
[2017-04-11] MEDS: ALUMINUM/MAGNESIUM/SIMETH 30 ML CUP PO PRN (15:11)
[2017-04-11] MEDS: LURASIDONE 40 MG TAB PO SCH (16:55)
[2017-04-11 17:48] VITALS: BP 128/77; PULSE 79; RESP 17; TEMP 98.4; O2SAT 97
[2017-04-12 05:49] VITALS: BP 117/67; PULSE 73; RESP 18; TEMP 97.3; O2SAT 96
[2017-04-12] MEDS: IBUPROFEN 400 MG TAB PO PRN ×3 (06:29→21:50)
[2017-04-12] MEDS: ALUMINUM/MAGNESIUM/SIMETH 30 ML CUP PO PRN (08:34)
[2017-04-12] MEDS: LURASIDONE 40 MG TAB PO SCH (08:34)
--- NOTE | 2017-04-12 10:34 | PD.TTN ---
Patient Problems 1. Discharge planning 2. Medication compliance 3. Knowledge deficit 4. Lack of coping skills Progress Toward Goals Provider Present: Dr. Alicia Ward Provider Input: Patient is a recent admit on the unit. Patient continues to be noncompliant with medications upon his last discharge. Patient had returned home Nurse(s) Input: Patient has been compliant with medications and has been attending to ADLs. Patient is somewhat interactive with peers. Psychiatric Counselors Present: ABISAI Escalante Psych Therapist Input: Patient will be in contact with family memebers in regards to patient's placement. Teresita AckermanAlberto Apr 12, 2017 10:34
--- NOTE | 2017-04-12 11:27 | HHI.PR ---
Objective Vital Signs Date Time Temp Pulse Resp B/P (MAP) Pulse Ox O2 Delivery O2 Flow Rate FiO2 04/12/17 05:49 97.3 73 18 117/67 (84) 96 04/11/17 17:48 98.4 79 17 128/77 (94) 97 I/O 04/11/17 04/11/17 04/11/17 04/12/17 04/12/17 04/12/17 07:00 15:00 23:00 07:00 15:00 23:00 Intake Total 540 ml 960 ml 360 ml 240 ml Balance 540 ml 960 ml 360 ml 240 ml Intake Oral 540 ml 960 ml 360 ml 240 ml # Voids 1 1 3 2 Result Diagram: 04/09/17 0722 04/09/17 1248 A/P Problem List: (1) Dementia ICD Code: F03.90 - Unspecified dementia without behavioral disturbance Status: Acute (2) DEMENTIA IN OTH DISEASES CLASSD ELSWHR W BEHAVIORAL DISTURB ICD Code: F02.81 - DEMENTIA IN OTH DISEASES CLASSD ELSWHR W BEHAVIORAL DISTURB (3) Alzheimer's dementia with behavioral disturbance ICD Code: G30.9 - Alzheimer's disease, unspecified; F02.81 - Dementia in other diseases classified elsewhere with behavioral disturbance Assessment and Plan Assessment and Plan 71-year-old male with past medical history significant for dementia, bipolar disorder, depression, history of traumatic brain injury and dyslipidemia who presents to [facility] as a Almonte act from [place]. Dementia with behavioral disturbance Suicidal ideation Psychiatry continuing to follow Negative medical workup Hypertensive Well-controlled and stable now Medically cleared for discharge when cleared by psychiatry No need for further monitoring of blood pressures Dyslipidemia/glaucoma Chronic knee pain Resume baseline treatments at discharge DVT Prophylaxis Patient is ambulatory Blood pressures are stable. No further medical concerns. Patient medically stable for discharge from hospital standpoint when cleared by psychiatry. Will sign off at this time. Problem Qualifiers (1) Dementia: Qualified Codes: F03.91 - Unspecified dementia with behavioral disturbance Jassi Way MD Apr 12, 2017 11:27
--- NOTE | 2017-04-12 12:00 | HHI.PYPN ---
Subjective Remarks Patient seen in day room with nurse Estefany, chart review, patient compliant medication. Patient continues somewhat irritable diffusely confused, demanding discharged today to his . It appears is been no significant medication patient's related her opinion as to placement issues. For now continue treatment no change Review of Systems Except as stated in HPI: all other systems reviewed are Neg Mental Status Examination Appearance: Disheveled Consciousness: Alert Orientation: Person, Place, Date/Time Motor Activity: Normal gait Speech: Hesitant Language: Perseveration Fund of Knowledge: Inadequate Attention and Concentration: Inadequate Memory: Impaired Mood: Oppositional, Anxious Affect: Irritable Thought Process & Associations: Disorganized Thought Content: Bizarre thinking, Delusional Hallucination Type: None Delusion Type: Paranoid Suicidal Ideation: No Suicidal Plan: No Suicidal Intention: No Homicidal Ideation: No Homicidal Plan: No Homicidal Intention: No Insight: Poor Judgment: Poor Results Vitals/IOs Vital Signs Date Time Temp Pulse Resp B/P (MAP) Pulse Ox O2 Delivery O2 Flow Rate FiO2 04/12/17 05:49 97.3 73 18 117/67 (84) 96 04/08/17 13:08 Room Air Intake and Output 04/12/17 04/12/17 04/13/17 08:00 16:00 00:00 Intake Total 360 ml Balance 360 ml Assessment & Plan Problem List: (1) Alzheimer's dementia with behavioral disturbance ICD Codes: G30.9 - Alzheimer's disease, unspecified; F02.81 - Dementia in other diseases classified elsewhere with behavioral disturbance (2) DEMENTIA IN OTH DISEASES CLASSD ELSWHR W BEHAVIORAL DISTURB ICD Codes: F02.81 - DEMENTIA IN OTH DISEASES CLASSD ELSWHR W BEHAVIORAL DISTURB Assessment & Plan Estimated LOS: days patient continues confused and demented also somewhat irritable wandering discharge. Now continue treatment no change Justification for Cont. Inpt. At this time patient will decompensate now placed in appropriate level of care Discharge Planning To be determined need family's involvement Request HC Surrog/Guard Advoc?: Yes Gerald Ward MD Apr 12, 2017 12:00
[2017-04-12 18:30] VITALS: BP 118/71; PULSE 74; RESP 18; TEMP 97.7; O2SAT 99
[2017-04-13 05:57] VITALS: BP 124/67; PULSE 72; RESP 16; TEMP 97.7; O2SAT 96
[2017-04-13] MEDS: LURASIDONE 40 MG TAB PO SCH (08:54)
--- NOTE | 2017-04-13 14:40 | HHI.PYPN ---
Subjective Remarks Patient seen in his room with floor staff, chart reviewed, patient compliant medication. Patient is calm cooperative though diffusely confused all 4 spheres. He is been no behavioral issues. Review of Systems Except as stated in HPI: all other systems reviewed are Neg Mental Status Examination Appearance: Disheveled Consciousness: Alert Orientation: Person, Place, Date/Time Motor Activity: Normal gait Speech: Hesitant Language: Perseveration Fund of Knowledge: Inadequate Attention and Concentration: Inadequate Memory: Impaired Mood: Oppositional, Anxious Affect: Irritable Thought Process & Associations: Disorganized Thought Content: Bizarre thinking, Delusional Hallucination Type: None Delusion Type: Paranoid Suicidal Ideation: No Suicidal Plan: No Suicidal Intention: No Homicidal Ideation: No Homicidal Plan: No Homicidal Intention: No Insight: Poor Judgment: Poor Results Vitals/IOs Vital Signs Date Time Temp Pulse Resp B/P (MAP) Pulse Ox O2 Delivery O2 Flow Rate FiO2 04/13/17 05:57 97.7 72 16 124/67 (86) 96 Assessment & Plan Problem List: (1) DEMENTIA IN OTH DISEASES CLASSD ELSWHR W BEHAVIORAL DISTURB ICD Codes: F02.81 - DEMENTIA IN OTH DISEASES CLASSD ELSWHR W BEHAVIORAL DISTURB (2) OTHER ALZHEIMER'S DISEASE ICD Codes: G30.8 - OTHER ALZHEIMER'S DISEASE Assessment & Plan Estimated LOS: days patient continues confused and demented, but no significant behavioral problems at this time. For now continue treatment Justification for Cont. Inpt. This time patient will decompensate with placed in a lower level of care Discharge Planning Treatment team continues to work on placement issues Request HC Surrog/Guard Advoc?: Yes Gerald Ward MD Apr 13, 2017 14:40
[2017-04-13 18:16] VITALS: BP 151/68; PULSE 79; RESP 16; TEMP 98; O2SAT 98
[2017-04-13 18:17] VITALS: BP 151/68; PULSE 79; RESP 16; TEMP 98; O2SAT 98
[2017-04-13] MEDS: IBUPROFEN 400 MG TAB PO PRN (21:31)
[2017-04-14] MEDS: ALUMINUM/MAGNESIUM/SIMETH 30 ML CUP PO PRN (02:19)
[2017-04-14 06:00] VITALS: BP 111/63; PULSE 69; RESP 17; TEMP 97.5; O2SAT 97
[2017-04-14] MEDS: LURASIDONE 40 MG TAB PO SCH (09:04)
[2017-04-14] MEDS ORDERED: LURA40 PO (10:24)
--- NOTE | 2017-04-14 10:31 | HHI.DS ---
Psychiatry Discharge Summary Inpatient Psychiatric care?: Yes Advance Directive: No Reason Not Provided: Due to Patient Condition Mental Health AdvanceDirective: No Health Care Proxy: No Admission Admission Date Apr 08, 2017 at 13:00 Admission Diagnosis: (1) Dementia ICD Code: F03.90 - Unspecified dementia without behavioral disturbance (2) OTHER ALZHEIMER'S DISEASE ICD Code: G30.8 - OTHER ALZHEIMER'S DISEASE Brief History This is a 71-year-old male who presents under a Almonte act. Apparently he was calling 911, stating his had a hammer and that she was "acting crazy". According to the summer law associate, the patient was found to be suicidal, stating he wanted to kill himself. When the officer asked the patient how he would do so, the patient explained he would hit himself in the head with a hammer. When the patient was brought to the emergency department at [facility], he apparently told the emergency room attending physician that he had been waiting for hours, when in reality it was less than 30 minutes. He did not recognize the emergency room physician, who he had seen approximately one week before. In fact, he did not recall his visit to the emergency department approximately one week ago. He also stated he has not been to his mental health appointments for "a while" when there is information that contradicts this. Upon interview, the patient is obviously a poor historian and appears demented. He does not know the current date, day of the week, name of this facility, time or situation. He does claim that his (of 47 years according to records) is trying to attack him with a hammer and that she has "gone crazy". While he told the officer who came to his home that he was suicidal, he is denying that at the present time. However, he remains paranoid of his and is willing to stop her by any means possible, including attacking her first. Tobacco Use In Past 30 Days: No Tobacco Past 30 Days Alcohol Use: Never Hospital Course Patient's hospital course was unremarkable, no no behavior problems noted. Has been compliant with medications. Patient continues confused demented, but is aware of his . At the present time patient feels present would be better served at home. Patient does denies suicidality homicidality voices or visions. At this time patient a longer meet Almonte criteria for involuntary psychiatric hospitalization thus will be discharged today to his Rx 1 month schedule medication of Latuda. Also referred to home health care insight nurse medication management and evaluation. Results Blood Pressure 111 / 63 Vital Signs Date Time Temp Pulse Resp B/P (MAP) Pulse Ox O2 Delivery O2 Flow Rate FiO2 04/14/17 06:00 97.5 69 17 111/63 (79) 97 Laboratory Results Test 04/09/17 12:48 Cholesterol Level 103 MG/DL (120-200) HDL Cholesterol 35.6 MG/DL (40.0-60.0) Hemoglobin A1c 5.1 % (4.3-6.0) LDL Cholesterol 52 MG/DL (0-99) Triglycerides Level 75 MG/DL (42-150) Summary of Procedures None done Pending results at discharge: No Medications # of Antipsychotic meds at D/C: 1 Approp Antipsych med options 1 - Minimum of three failed multiple trials of monotherapy. 2 - Documented plan to taper to monotherapy due to previous use of multiple meds OR cross-taper in progress at D/C. 3 - Documentation of augmentation of Clozapine. 4 - Justification other than those listed in allowable values 1-3, document here : Discharge Discharge Date: Apr 14, 2017 Discharge Diagnosis: (1) OTHER ALZHEIMER'S DISEASE Diagnosis: Principal ICD Code: G30.8 - OTHER ALZHEIMER'S DISEASE (2) Dementia Diagnosis: Principal ICD Code: F03.90 - Unspecified dementia without behavioral disturbance Status: Acute Pt Condition on Discharge: Stable Discharge Disposition: Discharge Home Discharge Instructions Diet Instructions: As Tolerated, No Restrictions Activities you can perform: Regular-No Restrictions Scheduled Appointment: follow-up home health care psychiatric nurse Discharge Time > 30 minutes Mental Status Examination Appearance: Disheveled Consciousness: Alert Orientation: Person, Place, Date/Time Motor Activity: Normal gait Speech: Hesitant Language: Perseveration Fund of Knowledge: Inadequate Attention and Concentration: Inadequate Memory: Impaired Mood: Oppositional, Anxious Affect: Irritable Thought Process & Associations: Disorganized Thought Content: Bizarre thinking, Delusional Hallucination Type: None Delusion Type: Paranoid Suicidal Ideation: No Suicidal Plan: No Suicidal Intention: No Homicidal Ideation: No Homicidal Plan: No Homicidal Intention: No Insight: Poor Judgment: Poor Discharge/Advance Care Plan Health Problems: (1) DEMENTIA IN OTH DISEASES CLASSD ELSWHR W BEHAVIORAL DISTURB (2) OTHER ALZHEIMER'S DISEASE Goals to promote your health * To prevent worsening of your condition and complications * To maintain your health at the optimal level Directions to meet your goals Take your medications as prescribed Follow your dietary instruction Follow activity as directed Keep your appointments as scheduled Take your immunizations and boosters as scheduled If your symptoms worsen call your PCP, if no PCP go to Urgent Care Center or Emergency Room For 08/11 questions related to your inpatient stay or results of tests pending at discharge, please contact Dr. Gerald Ward at Smoking is Dangerous to Your Health. Avoid second hand smoking Problem Qualifiers (1) Dementia: Qualified Codes: F03.91 - Unspecified dementia with behavioral disturbance Gerald Ward MD Apr 14, 2017 10:31
== END 2017-04-14 15:00 | disposition home or self-care (01) | DRG 57 ==
LOC: NEPD 09:18 → NEDA 13:00 → H250 14:45 → H260 04-12 16:35
PROVIDERS: ADMIT Psychiatry & Neurology Psychiatry; ATTEND Psychiatry & Neurology Psychiatry
DX: G30.9 Alzheimer's disease, unspecified (principal); F02.81 Dementia in other diseases classified elsewhere, unspecified severity, with behavioral disturbance; R45.851 Suicidal ideations; F23 Brief psychotic disorder; F25.9 Schizoaffective disorder, unspecified; R45.850 Homicidal ideations; E78.5 Hyperlipidemia, unspecified; H40.9 Unspecified glaucoma; I10 Essential (primary) hypertension; G89.29 Other chronic pain; M25.569 Pain in unspecified knee; Z87.820 Personal history of traumatic brain injury
CPT/HCPCS: 80053; 80061; 80307; 81001; 82306; 82607; 83036; 84443; 85025; 93005; J2060